=== PATIENT | female | born 1950 | race Caucasian/White ===

== ENCOUNTER → 2016-06-09 | Outpatient (CLI) | payer OTHER ==
[~2016-06-09] MED LIST: ALBU1AER9 INH; ASPI1TAB83 PO; CALC500T83 PO; CETI10TA84 PO; CHOL100010 PO; CICL160A INH; CRD30 PO; CYAN3INJ IM; CYNI1000 INJ; EPP3/2 IM; EZET10TA63 PO; FLUT0.15 NAE; FURO-85 PO; IBUP-1277 PO; MONT1TAB3 PO; PRAV20TA PO; PROAIR INH; QUIN20TA30 PO; TYLOTC500 PO; ZNTT/150 PO
--- NOTE | 2016-06-09 10:13 | DIAGNOSTIC IMAGING REPORT ---
Ultrasound right arm RIGHT EXTREMITY NONVASCULAR LIMITED CLINICAL HISTORY: T14.8 Intramuscular hematomatous wed Sunday at 10 am Right hematoma. TECHNIQUE: Real-time ultrasound COMPARISON STUDY: None FINDINGS: Subtle increase in echogenicity of the subcutaneous tissues at the site of clinically palpable nodularity, discomfort, superficial bruising. This measures prior study at 2 x 1 cm. It may be consistent with a small hematoma. IMPRESSION: The clinically palpable nodularity appears to represent a soft tissue contusion/bruise, or small hematoma. Electronically signed by: Howard Aly M.D. 06/09/2016 10:10 AM Dictated Date/Time: 06/09/2016 10:05 AM
== END | disposition home or self-care (01) ==
LOC: C.ULTRBC 09:20
PROVIDERS: ATTEND Internal Medicine
DX: T14.8 Other injury of unspecified body region (principal); X58.XXXA Exposure to other specified factors, initial encounter

== ENCOUNTER → 2016-06-29 | Outpatient (CLI) | payer OTHER ==
--- NOTE | 2016-07-07 10:42 | CODING QUERY MEDICAL NECESSITY ---
CQSUPPORTING DIAGNOSIS NEEDED A supporting diagnosis is required for the test/procedure performed on this patient in order for us to be reimbursed by the patient's insurance. Please provide a supporting diagnosis for the following test/procedure listed below next to the test name along with your signature. *If there is no additional diagnosis for this patient that would support the following test/procedure please document that below next to the test/procedure. Test(s)/Procedure(s) that require a supporting diagnosis: DOS 06/29/16 VITAMIN B12 Provider Signature: Date: Thank you Mary Null [employer] Once completed, please kindly fax back to [phone] For questions please call [phone]
== END | disposition home or self-care (01) ==
LOC: C.LAB1850 09:23
PROVIDERS: ATTEND Internal Medicine
DX: Z00.00 Encounter for general adult medical examination without abnormal findings (principal); M25.50 Pain in unspecified joint; M81.0 Age-related osteoporosis without current pathological fracture

== ENCOUNTER 2016-09-21 16:58 | Emergency (ER) | payer OTHER ==
[~2016-09-21] VITALS: Ht 160 cm; Wt 69.0 kg
[~2016-09-21 16:58] MED LIST changes: -CRD30 PO; -CYNI1000 INJ; -FURO-85 PO; -PROAIR INH
[2016-09-21 17:03] VITALS: TEMP 36.8; Ht 160 cm; Wt 69.0 kg
[2016-09-21] MEDS ORDERED: FURO-85 PO (17:24)
[2016-09-21] MEDS ORDERED: CYNI1000 INJ (17:24)
[2016-09-21] MEDS ORDERED: CHOL100010 PO (17:24)
[2016-09-21] MEDS ORDERED: CRD30 PO (17:24)
[2016-09-21] MEDS ORDERED: PROAIR INH (17:24)
--- NOTE | 2016-09-21 18:35 | DIAGNOSTIC IMAGING REPORT ---
LEFT KNEE 1 OR 2 VIEWS ROUTINE CLINICAL HISTORY: Left knee pain following fall. COMPARISON: None FINDINGS: Alignment of the left knee is anatomic. No acute fracture or joint effusion is identified. There is mild osteophytosis of the left knee. Joint spaces are preserved. Positioning on the lateral view was difficult. IMPRESSION: No acute fracture or joint effusion of the left knee. Electronically signed by: Cedric Jimenez M.D. 09/21/2016 6:34 PM Dictated Date/Time: 09/21/2016 6:32 PM
--- NOTE | 2016-09-21 18:37 | DIAGNOSTIC IMAGING REPORT ---
RIGHT WRIST W/NAVICULAR MIN 3 VIEWS CLINICAL HISTORY: FALL, EVAL FX Right trauma. Pain. COMPARISON: None. DISCUSSION: Possible artifact versus nondisplaced cortical fracture mid navicular. All remaining osseous structures are negative for acute bony pathology. Alignment is anatomic. There is no evidence for soft tissue swelling. IMPRESSION: Nondisplaced incomplete cortical fracture mid navicular versus overlap artifact. CT of the right wrist is suggested as follow-up. The above report was generated using voice recognition software. It may contain grammatical, syntax or spelling errors. Electronically signed by: Howard Aly M.D. 09/21/2016 6:35 PM Dictated Date/Time: 09/21/2016 6:34 PM
--- NOTE | 2016-09-21 19:11 | EMERGENCY ROOM VISIT NOTE ---
ED Visit Note First contact with patient: 17:13 CHIEF COMPLAINT: Wrist injury HISTORY OF PRESENT ILLNESS: This 66-year-old female patient presents to the emergency department with her complaining of pain in the left knee and right wrist after falling earlier today. Patient states she slipped on some wet floor and fell forward onto both knees and put her hand out to catch herself. The patient is able to move their wrist. She states she is able to walk on the left knee, but has some pain and feels like it is going to "give out on her." The patient states the pain is aching and 3/10. No laceration, no weakness. No numbness or tingling. The patient denies any other injury. The patient is able to move their fingers and elbow without difficulty. Patient has no hip pain or ankle pain. The patient has not had a previous fracture to this wrist or knee. The patient has taken Tylenol for the pain. REVIEW OF SYSTEMS: A 6 system review of systems was performed with positives and pertinent negatives in the HPI. ALLERGIES: See chart MEDICATIONS: See chart PMH: See chart SOCIAL HISTORY: See chart PHYSICAL EXAM: Vital Signs: Reviewed Nurse's notes, vital signs stable. GENERAL : Pleasant and cooperative, in no acute distress, but appears to be in pain, well-developed, well-nourished. NEURO: Alert and oriented to person place and time. Normal sensation to light and sharp touch. MUSCULOSKELETAL: There is no deformity of the right wrist. There is tenderness, ecchymosis, and swelling over the palmar aspect of the base of the right thumb. There is snuff box tenderness. Range of motion is somewhat limited due to pain. There is no tenderness of the elbow, hand or fingers. 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 Radial pulse 2+. SKIN: Normal and intact. The hand is warm and well perfused with capillary refill less than 2 seconds. There is no deformity of the left knee. There is mild tenderness and ecchymosis with swelling over the anterior knee. There is no pain with full range of motion of the knee, no joint laxity, no joint line tenderness, no pain with varus and valgus stress. Distal pulses intact, sensation intact. EMERGENCY DEPARTMENT COURSE: I examined the patient. An X-ray of the left knee and right wrist was reviewed by myself and radiologist and showed no acute abnormality of the left knee, concern for possible navicular fracture of the right wrist. The patient has been ambulating on the left knee without pain or difficulty. Given fairly normal knee exam, will not place the patient into a knee immobilizer due to her history of factor V deficiency and increased risk for blood clots. Patient states she has a cane and crutches at home that she can use as needed. A Ortho-Glass thumb spica splint to the right wrist was placed under my direction and the position was satisfactory. Neurovascular status rechecked and intact. The patient was instructed to follow up with orthopedics, she states she has called Dr. Blanco's office and arranged an appointment for tomorrow. The patient was discharged home in good condition. Medication Reconciliation: I attest that I have personally reviewed the patient' s current medication list. Blood pressure screening: The patient was found to have an elevated blood pressure and was referred to their primary doctor for recheck and further treatment. Patient was discussed with Dr. Shi, who also evaluated the patient and agrees with my assessment and disposition. Problem List Medical Problems: (1) Asthma Status: Chronic (2) Factor V Leiden, prothrombin gene mutation Status: Chronic (3) Heterozygous factor V Leiden mutation Status: Chronic (4) HTN (hypertension) Status: Chronic (5) Kidney stone Status: Resolved (6) Medullary sponge kidney Status: Chronic Current/Historical Medications Scheduled Aspirin (Aspirin), 81 MG PO QPM Calcium (Calcium), 500 MG PO DAILY Cetirizine (Zyrtec), 10 MG PO QAM Cholecalciferol (Vitamin D), 1,000 UNITS PO DAILY Ciclesonide (Alvesco), 1 PUFF INH QAM Cyanocobalamin (Cyanocobalamin), 1,000 MCG INJ UD Epinephrine (Epipen), 0.3 MG IM UD Ezetimibe (Zetia), 10 MG PO HS Fluticasone Propionate (Nasal) (Flonase Allergy Relief), 2 SPRAYS SHILPA QAM Furosemide (Lasix), 20 MG PO UD Montelukast Sodium (Singulair), 10 MG PO HS Pravastatin (Pravachol ), 10 MG PO HS Quinapril Hcl (Quinapril Hcl), 1 TAB PO BID Ranitidine (Zantac), 150 MG PO BID Scheduled PRN Acetaminophen (Tylenol), 1,000 MG PO Q6 PRN for Pain Diltiazem HCl (Diltiazem HCl), 30 MG PO DAILY PRN for [Proair Hfa 180], 2 PUFFS INH Q4 PRN for Shortness of Breath Allergies Coded Allergies: Ferric Oxide (Verified Allergy, Severe, ANAPHYLAXIS, 10/14/15) burning in feet, faint, rapid heart rate, decreased blood pressure Insect Extract (Verified Allergy, Severe, ANAPHYLAXIS, 10/14/15) Peanut (Verified Allergy, Severe, ANAPHYLAXIS, 10/14/15) Shellfish (Verified Allergy, Severe, ANAPHYLAXIS, 10/14/15) Iron Sucrose (Unverified Allergy, Unknown, IV IRON SUCROSE-WEAKNESS,LT HEADED,CHEST HEAVINESS, HOT SENS, 10/14/15) Sulfa Antibiotics (Verified Allergy, Unknown, TACHYCARDIA,? DRUG INTERACTION, 10/14/15) Vital Signs Date Time Temp Pulse Resp B/P (MAP) Pulse Ox O2 Delivery O2 Flow Rate FiO2 09/21/16 20:37 88 18 144/78 97 09/21/16 17:03 36.8 87 18 191/90 95 Departure Information Impression Primary Impression: Scaphoid fracture of wrist Additional Impression: Left knee sprain Dispostion Home / Self-Care Condition GOOD Referrals Pro,Josh Draper M.D. (PCP) Patient Instructions ED Fx Wrist Navicular Poss, ED Sprain Knee, [facility] Additional Instructions Wear the wrist splint until you have follow-up. Stay off of the left knee as much as possible. You may use the crutch for additional stability. Ice and keep the wrist and knee elevated for 24-48 hrs. Ibuprofen 600mg and Tylenol 1000 mg every 6-8 hours if needed for the pain. Follow up with orthopedic surgeon within the next week. Problem Qualifiers Primary Impression: Scaphoid fracture of wrist Encounter type: initial encounter Scaphoid bone location: unspecified portion of scaphoid Fracture type: closed Fracture alignment: nondisplaced Laterality: right Qualified Codes: S62.001A - Unspecified fracture of navicular [scaphoid] bone of right wrist, initial encounter for closed fracture Additional Impression: Left knee sprain Encounter type: initial encounter Involved ligament of knee: unspecified ligament Qualified Codes: S83.92XA - Sprain of unspecified site of left knee, initial encounter
--- NOTE | 2016-09-21 20:29 | EMERGENCY ROOM VISIT NOTE ---
ED Visit Note First contact with patient: 20:28 This Patient was discussed with the nurse practitioner, Trisha Rojas NP. The pertinent historical and physical exam findings were confirmed. I agree with the studies ordered and with the interpretations of these studies. I agree with the disposition and care plan.
[2016-09-21 20:37] VITALS: BP 144/78; PULSE 88; O2SAT 97
== END 2016-09-21 20:38 | disposition home or self-care (01) ==
LOC: C.EDB 16:59 → C.EDD 20:38
DX: S62.001A Unspecified fracture of navicular [scaphoid] bone of right wrist, initial encounter for closed fracture (principal); S83.92XA Sprain of unspecified site of left knee, initial encounter; W01.198A Fall on same level from slipping, tripping and stumbling with subsequent striking against other object, initial encounter; D68.2 Hereditary deficiency of other clotting factors; J45.909 Unspecified asthma, uncomplicated; I10 Essential (primary) hypertension; D68.51 Activated protein C resistance; Z87.442 Personal history of urinary calculi; Z79.82 Long term (current) use of aspirin

== ENCOUNTER → 2017-01-30 | Outpatient (CLI) | payer OTHER ==
[~2017-01-30] MED LIST changes: -ALBU1AER9 INH; +CRD30 PO; -CYAN3INJ IM; +CYNI1000 INJ; +FURO-85 PO; -IBUP-1277 PO; +PROAIR INH
--- NOTE | 2017-01-31 13:45 | MAMMOGRAPHY REPORT ---
BILATERAL DIGITAL SCREENING MAMMOGRAM TOMOSYNTHESIS WITH CAD: 01/30/2017 CLINICAL HISTORY: Routine screening. Patient has no complaints. TECHNIQUE: Breast tomosynthesis in addition to standard 2D mammography was performed. Current study was also evaluated with a Computer Aided Detection (CAD) system. COMPARISON: Comparison is made to exams dated: 01/24/2016 mammogram, 01/20/2015 mammogram, 4 mammogram, 01/10/2013 mammogram, 01/09/2012 mammogram, and 01/03/2011 mammogram - [facility]. BREAST COMPOSITION: There are scattered areas of fibroglandular density in both breasts. FINDINGS: There is stable asymmetry in the superior left breast. No new suspicious mass, architectu ral distortion or cluster of microcalcifications is seen. IMPRESSION: ACR BI-RADS CATEGORY 1: NEGATIVE There is no mammographic evidence of malignancy. A 1 year screening mammogram is recommended. The pa tient will receive written notification of the results. Approximately 10% of breast cancers are not detected with mammography. A negative mammographic report should not delay biopsy if a clinically suggestive mass is present. Zeina Sánchez M.D. ay/:01/30/2017 17:51:03 Social Security Assessor: Shelly RON(Renato)(Angeline)([place]), [facility] letter sent: Normal 1/2 BI-RADS Code: ACR BI-RADS Category 1: Negative
== END | disposition home or self-care (01) ==
LOC: C.MAMM 08:43
PROVIDERS: ATTEND Obstetrics & Gynecology
DX: Z12.31 Encounter for screening mammogram for malignant neoplasm of breast (principal)

== ENCOUNTER → 2017-05-18 | Day surgery (SDC) | payer OTHER ==
[2017-05-01 09:00] VITALS: Ht 158.8 cm; Wt 70.5 kg
[~2017-05-18] VITALS: Ht 158.8 cm; Wt 70.5 kg
[~2017-05-18] MED LIST changes: +LIDOCAINE HCL 2% 2 ML VIAL (20MG/ML) ONE; -MONT1TAB3 PO; -PRAV20TA PO; +PROPOFOL IV EMULSION 10 MG/ML 20 ML VIAL IV ONE; +RANI150T85 PO; -ZNTT/150 PO
[2017-05-18 11:05] VITALS: TEMP 36.2
--- NOTE | 2017-05-18 11:56 | Endo History and Physical ---
History & Physical Date of Service: May 18, 2017. Chief Complaint: INTESTIONAL METAPLASIA MUCOSA Referring Physician: DR HENSLEY History of Present Illness 66 yo CF who presents for EGD secondary to intestinal metaplasia in stomach. Past Medical History Osteoporosis, Asthma, Gastrointestinal Disorder, Reflux, Blood Dyscrasias, High Cholesterol, Hypertension, Other Past Surgical History Hx Cardiac Surgery: No Hx Internal Defibrillator: No Hx Pacemaker: No Hx Abdominal Surgery: Yes (HERNIA REPAIR) Hx of Implantable Prosthesis: No Hx Post-Op Nausea and Vomiting: No Hx Cancer Surgery: No Hx Thoracic Surgery: No Hx Orthopedic: No Hx Urinary Tract Surgery: Yes (LITHOTRIPSY) Family History Colon CA, Polyp, IBD Social History Smoking Status: Former Smoker Hx Substance Use: No Hx Alcohol Use: No Allergies Coded Allergies: Ferric Oxide (Verified Allergy, Severe, ANAPHYLAXIS, 05/01/17) burning in feet, faint, rapid heart rate, decreased blood pressure Insect Extract (Verified Allergy, Severe, ANAPHYLAXIS, 05/01/17) Peanut (Verified Allergy, Severe, ANAPHYLAXIS, 05/01/17) Shellfish (Verified Allergy, Severe, ANAPHYLAXIS, 05/01/17) Iron Sucrose (Verified Allergy, Unknown, IV IRON SUCROSE-WEAKNESS,LT HEADED,CHEST HEAVINESS, HOT SENS, 05/18/17) Sulfa Antibiotics (Verified Allergy, Unknown, TACHYCARDIA,? DRUG INTERACTION, 05/01/17) Uncoded Allergies: APPLES (Allergy, Unknown, MOUTH AND LIPS TINGLE, 05/18/17) Current Medications Reported Home Medications Medications Dose Route/Sig Max Daily Dose Days Date Category Dose Instructions Diltiazem HCl 30 Mg Tab 30 Mg PO DAILY PRN 09/21/16 Reported Lasix (Furosemide) 20 Mg Tab 20 Mg PO UD 09/21/16 Reported TAKE 1 TAB BEFORE AND AFTER EACH LEG OF THE FLIGHT. Vitamin D (Cholecalciferol) 1,000 Unit Tab 1,000 Units PO DAILY 09/21/16 Reported [Proair Hfa 180] 2 Puffs INH Q4 PRN 09/21/16 Reported Cyanocobalamin 1,000 Mcg/Ml Inj 1,000 Mcg INJ MONTHLY 09/21/16 Reported Quinapril Hcl 20 Mg Tab 1 Tab PO BID 10/14/15 Reported Flonase Allergy Relief (Fluticasone Propionate (Nasal)) 50 Mcg/Act Spr 2 Sprays SHILPA QAM 3/4/16 Reported Tylenol (Acetaminophen) 500 Mg Tab 1,000 Mg PO Q6 PRN 10/03/14 Reported Zyrtec (Cetirizine HCl) 10 Mg Tab 10 Mg PO QAM 10/03/14 Reported Epipen (Epinephrine) 0.3 Mg/0.3 Ml Inj 0.3 Mg IM UD 09/11/12 Reported ONE INJECTION IM PRN SEVERE ALLERGIC REACTION. REPEAT IN 20 MINUTES PRN CONTINUED REACTION. Calcium 500 Mg Tab 500 Mg PO DAILY 09/11/12 Reported Aspirin 81 Mg Tab 81 Mg PO QPM 09/11/12 Reported Alvesco (Ciclesonide) 160 Mcg/Act Aer 1 Puff INH QAM 09/11/12 Reported MAY INCREASE TO 1 PUFF BID NEEDED FOR EXACERBATION Zantac (Ranitidine HCl) 150 Mg Tab 150 Mg PO BID 04/23/10 Reported Zetia (Ezetimibe) 10 Mg Tab 10 Mg PO HS 04/23/10 Reported Vital Signs Weight (Kilograms): 70.45 Height (Feet): 5 Height (Inches): 2.5 Date Time Temp Pulse Resp B/P (MAP) Pulse Ox O2 Delivery O2 Flow Rate FiO2 05/18/17 11:05 36.2 85 20 160/92 (114) 98 Room Air Physical Exam General Appearance: WD/WN, no apparent distress Respiratory/Chest: Auscultation: breath sounds normal Cardiovascular: Heart Auscultation: RRR Abdomen: Bowel Sounds: normal Inspection & Palpation: soft, non-distended, no tenderness, guarding & rebound Assessment and Plan Assessment: 66 yo CF who presents for EGD secondary to intestinal metaplasia in stomach. Plan: Proceed with EGD.
--- NOTE | 2017-05-18 12:14 | GI REPORT ---
Procedure Date: 05/18/2017 11:26 AM Procedure: Upper GI endoscopy Indications: Surveillance procedure Medicines: Monitored Anesthesia Care Complications: No immediate complications. Estimated Blood Loss: Estimated blood loss: none. Procedure: Pre-Anesthesia Assessment: - Prior to the procedure, a History and Physical was performed, and patient medications and allergies were reviewed. The patient's tolerance of previous anesthesia was also reviewed. The risks and benefits of the procedure and the sedation options and risks were discussed with the patient. All questions were answered, and informed consent was obtained. Prior Anticoagulants: The patient has taken aspirin, last dose was 1 day prior to procedure. ASA Grade Assessment: II - A patient with mild systemic disease. After reviewing the risks and benefits, the patient was deemed in satisfactory condition to undergo the procedure. After obtaining informed consent, the endoscope was passed under direct vision. Throughout the procedure, the patient's blood pressure, pulse, and oxygen saturations were monitored continuously. The scope was introduced through the mouth, and advanced to the second part of duodenum. The upper GI endoscopy was accomplished without difficulty. The patient tolerated the procedure well. Findings: The esophagus was normal. A medium-sized hiatal hernia was present. Biopsies were taken with a cold forceps in the gastric antrum for histology. The examined duodenum was normal. Impression: - Normal esophagus. - Medium-sized hiatal hernia. - Normal examined duodenum. - Biopsies were taken with a cold forceps for histology in the gastric antrum. Recommendation: - Resume previous diet. - Continue present medications. - Await pathology results. - Return to primary care physician as previously scheduled. Jesus Alston DO 05/18/2017 12:13:43 PM This report has been signed electronically. Note Initiated On: 05/18/2017 11:26 AM I attest to the content of the Intraoperative Record and orders documented therein, exceptions below
[2017-05-18 12:43] VITALS: BP 118/75; PULSE 64; O2SAT 98
--- NOTE | 2017-05-18 12:47 | Discharge Instructions ---
Endoscopy Patient Instructions Date / Procedure(s) Performed May 18, 2017. Colonoscopy Allergy Information Coded Allergies: Ferric Oxide (Verified Allergy, Severe, ANAPHYLAXIS, 05/01/17) burning in feet, faint, rapid heart rate, decreased blood pressure Insect Extract (Verified Allergy, Severe, ANAPHYLAXIS, 05/01/17) Peanut (Verified Allergy, Severe, ANAPHYLAXIS, 05/01/17) Shellfish (Verified Allergy, Severe, ANAPHYLAXIS, 05/01/17) Iron Sucrose (Verified Allergy, Unknown, IV IRON SUCROSE-WEAKNESS,LT HEADED,CHEST HEAVINESS, HOT SENS, 05/18/17) Sulfa Antibiotics (Verified Allergy, Unknown, TACHYCARDIA,? DRUG INTERACTION, 05/01/17) Uncoded Allergies: APPLES (Allergy, Unknown, MOUTH AND LIPS TINGLE, 05/18/17) Discharge Date / Findings May 18, 2017. Gastric antrum biopsies Hiatal hernia Medication Instructions Stopped Medication(s): ASPIRIN LAST DOSE 05/17/17 OK to resume all medications today as prescribed Reported Home Medications Medications Dose Route/Sig Max Daily Dose Days Date Category Dose Instructions Diltiazem HCl 30 Mg Tab 30 Mg PO DAILY PRN 09/21/16 Reported Lasix (Furosemide) 20 Mg Tab 20 Mg PO UD 09/21/16 Reported TAKE 1 TAB BEFORE AND AFTER EACH LEG OF THE FLIGHT. Vitamin D (Cholecalciferol) 1,000 Unit Tab 1,000 Units PO DAILY 09/21/16 Reported [Proair Hfa 180] 2 Puffs INH Q4 PRN 09/21/16 Reported Cyanocobalamin 1,000 Mcg/Ml Inj 1,000 Mcg INJ MONTHLY 09/21/16 Reported Quinapril Hcl 20 Mg Tab 1 Tab PO BID 10/14/15 Reported Flonase Allergy Relief (Fluticasone Propionate (Nasal)) 50 Mcg/Act Spr 2 Sprays SHILPA QAM 05/07/15 Reported Tylenol (Acetaminophen) 500 Mg Tab 1,000 Mg PO Q6 PRN 10/03/14 Reported Zyrtec (Cetirizine HCl) 10 Mg Tab 10 Mg PO QAM 10/03/14 Reported Epipen (Epinephrine) 0.3 Mg/0.3 Ml Inj 0.3 Mg IM UD 09/11/12 Reported ONE INJECTION IM PRN SEVERE ALLERGIC REACTION. REPEAT IN 20 MINUTES PRN CONTINUED REACTION. Calcium 500 Mg Tab 500 Mg PO DAILY 09/11/12 Reported Aspirin 81 Mg Tab 81 Mg PO QPM 09/11/12 Reported Alvesco (Ciclesonide) 160 Mcg/Act Aer 1 Puff INH QAM 09/11/12 Reported MAY INCREASE TO 1 PUFF BID NEEDED FOR EXACERBATION Zantac (Ranitidine HCl) 150 Mg Tab 150 Mg PO BID 04/23/10 Reported Zetia (Ezetimibe) 10 Mg Tab 10 Mg PO HS 04/23/10 Reported Provider Instructions Activity Restrictions - No exercising or heavy lifting for 24 hours. - Do not drink alcohol the day of the procedure. - Do not drive a car or operate machinery until the day after the procedure. - Do not make any important decisions or sign important papers in 24 hours after the procedure. Following Day: - Return to full activity which may include returning to work/school. Diet Start your diet with liquids and light foods (jello, soup, juice, toast). Then eat your usual diet if not nauseated. Treatment For Common After Affects For mild abdominal pain, bloating, or excessive gas: - Rest - Eat lightly - Lie on right side Follow-Up Information Follow-up with DR HENSLEY as scheduled Anesthesia Information What You Should Know You have had a procedure that required some medicine to reduce anxiety and discomfort. This treatment is called moderate sedation. After receiving the treatment, you may be sleepy, but you will be able to breathe on your own. The effects of the treatment may last for several hours. Follow these instructions along with Activity/Diet recommendations noted above: * Do NOT do anything where dizziness or clumsiness would be dangerous. * Rest quietly at home today, then you can be up and about tomorrow. * Have a responsible person stay with you the rest of today. * You may have had an I.V. today. If so, you may take the dressing off later today. Recommendations Call your doctor if: * Trouble breathing * Continuous vomiting for more than 24 hours * Temperature above 101 degrees * Severe abdominal pain or bloating * Pain not relieved by pain medicine ordered * There is increased drainage or redness from any incision * A large amount of rectal bleeding greater than 2-3 tablespoons. (If you had a polyp/s removed or have hemorrhoids, a small amount of blood - from the rectum is to be expected.) * You have any unanswered questions or concerns. IN THE EVENT OF A SERIOUS EMERGENCY, GO TO THE NEAREST EMERGENCY ROOM Your discharge instructions were prepared by provider Jesus Alston. Patient Instructions Signature Page Raquel Devine Patient (or Guardian) Signature/Date: I have read and understand the instructions given to me by my caregivers. Caregiver/RN/Doctor Signature/Date: The above-named patient and/or guardian has received patient instructions on this date. + Original Patient Signature Page (only) stays with chart. Please make copy for patient.
--- NOTE | 2017-05-18 13:16 | Anesthesiology Progress Note ---
Anesthesia Post Op Note Date & Time May 18, 2017 at 13:16 Vital Signs Pain Intensity: 0 Vital Signs Past 12 Hours Date Time Temp Pulse Resp B/P (MAP) Pulse Ox O2 Delivery O2 Flow Rate FiO2 05/18/17 12:43 64 18 118/75 (89) 98 Room Air 05/18/17 12:29 75 18 128/81 (97) 98 Room Air 05/18/17 12:13 80 16 98/63 (75) 98 Room Air 05/18/17 11:05 36.2 85 20 160/92 (114) 98 Room Air Notes Mental Status: alert / awake / arousable, participated in evaluation Pt Amnestic to Procedure: Yes Nausea / Vomiting: adequately controlled Pain: adequately controlled Airway Patency, RR, SpO2: stable & adequate BP & HR: stable & adequate Hydration State: stable & adequate Anesthetic Complications: no major complications apparent
== END | disposition home or self-care (01) ==
LOC: C.GI 10:39
PROVIDERS: ATTEND Internal Medicine
DX: K63.89 Other specified diseases of intestine (principal); K29.50 Unspecified chronic gastritis without bleeding; K44.9 Diaphragmatic hernia without obstruction or gangrene; N18.9 Chronic kidney disease, unspecified; I12.9 Hypertensive chronic kidney disease with stage 1 through stage 4 chronic kidney disease, or unspecified chronic kidney disease; E78.5 Hyperlipidemia, unspecified; D68.51 Activated protein C resistance; J45.909 Unspecified asthma, uncomplicated; K21.9 Gastro-esophageal reflux disease without esophagitis; E78.00 Pure hypercholesterolemia, unspecified; M81.0 Age-related osteoporosis without current pathological fracture; Z88.2 Allergy status to sulfonamides; Z91.013 Allergy to seafood; Z91.010 Allergy to peanuts; Z88.8 Allergy status to other drugs, medicaments and biological substances; Z79.82 Long term (current) use of aspirin; Z87.891 Personal history of nicotine dependence; Z80.0 Family history of malignant neoplasm of digestive organs

== ENCOUNTER → 2017-06-28 | Outpatient (CLI) | payer OTHER ==
[~2017-06-28] MED LIST changes: -LIDOCAINE HCL 2% 2 ML VIAL (20MG/ML) ONE; -PROPOFOL IV EMULSION 10 MG/ML 20 ML VIAL IV ONE
--- NOTE | 2017-06-28 09:04 | DIAGNOSTIC IMAGING REPORT ---
R RIBS UNILATERAL WITH PA CHEST CLINICAL HISTORY: R07.81 right rib pain COMPARISON STUDY: No previous studies for comparison. FINDINGS: The erect chest reveals no pneumothorax. There is no focal pulmonary consolidation. No right-sided rib fractures are visualized. No destructive lesions are visualized on conventional radiographic imaging. IMPRESSION: No evidence of pneumothorax. No right-sided rib abnormalities identified Electronically signed by: Roman Owens M.D. 06/28/2017 9:03 AM Dictated Date/Time: 06/28/2017 9:02 AM
== END | disposition home or self-care (01) ==
LOC: C.RAD1850 08:46
PROVIDERS: ATTEND Internal Medicine
DX: R07.81 Pleurodynia (principal)

== ENCOUNTER 2019-03-01 12:47 | Inpatient (IN) ==
[2019-03-01] MEDS ORDERED: ONDANSETRON INJ 2 MG/ML 2 ML VIAL IV STA (13:18)
[2019-03-01 13:28] LABS: Hematocrit (blood only) 42.5 % (37-47); Hemoglobin 14.3 g/dL (12.0-16.0); Mean Corpuscular Hemoglobin 32.6 pg (25-34); Mean Corpuscular Hgb Conc 33.6 g/dL (32-36); Mean Corpuscular Volume 96.8 fL (80-100); Mean Platelet Volume 10.6 fL (7.4-10.4); Platelet Count 262 K/uL (130-400); RDW Coefficient of Variation 13.5 % (11.5-14.5); RDW Standard Deviation 48.1 fL (36.4-46.3); Red Blood Count 4.39 M/uL (4.2-5.4); White Blood Count 8.76 K/uL (4.8-10.8)
[2019-03-01] MEDS: MoRPHine SULFATE 4 MG/ML 1 ML CARP\\VIAL IV PRN ×3 (13:29→18:28)
[2019-03-01] MEDS ORDERED: SODIUM CHLORIDE 0.9% 1000ML 1,000 ML IV SCH (13:30)
[2019-03-01 13:36] LABS: Albumin Level 4.3 gm/dl (3.4-5.0); BUN Creatinine Ratio 19.6 (10-20); Calcium 10.1 mg/dl (8.5-10.1); Creatinine Clr Calc Pharmacy 61.7 ml/min; Est GFR (African American) 83.4; Est GFR (Non-African American) 71.9; Potassium 3.8 mmol/L (3.5-5.1)
[2019-03-01 13:42] LABS: Bilirubin,Total 0.4 mg/dl (0.2-1); Globulin 4.4 gm/dl (2.5-4.0); Total Protein 8.7 gm/dl (6.4-8.2)
[2019-03-01] MEDS ORDERED: IOVERSOL 100ml IV PRN (13:49)
--- NOTE | 2019-03-01 13:55 | Emergency Department Note ---
Entered by Reno Gant acting as a scribe for History of Present Illness General Chief complaint: Abdominal Pain Time Seen by Provider: 03/01/19 13:11 Source: patient History of Present Illness Provider complaint: Abdominal pain Onset (ago): hour(s) 2 Location: abdomen Severity: similar to prior episodes Pain Consistency: + colicky Relieved By: + none Associated symptoms: + nausea/vomiting and + other (Lightheaded); no fever/chills The patient is a 68 year old female who presents to the Emergency Room with complaints of colicky abdominal pain that started suddenly about 2 hours ago. The patient reports that she had no pain yesterday or this morning. She states that with the pain she has some nausea and has vomited. The patient notes that she initially thought she just had to move her bowels but while she was sitting on the toilet she became near syncopal and vomited. The patient denies any complete LOC or head trauma. The patient has a history of diverticulitis and notes this feels somewhat similar. The patient also mentioned that she was around her grand kids who have been coughing but no one has had GI symptoms. The patient still has her appendix and gallbladder. She denies any fevers. Home Medications Home Medications Medication Instructions Recorded Confirmed Type albuterol sulfate 90 mcg/actuation 1 puffs INH Q6H PRN #8.5 gm 08/19/18 03/01/19 Rx aerosol inhaler calcium carbonate 200 mg calcium 200 mg PO BID #60 tab 08/19/18 03/01/19 Rx (500 mg) chewable tablet cholecalciferol (vitamin D3) 25 1,000 units PO DAILY #30 cap 08/19/18 03/01/19 Rx mcg (1,000 unit) capsule diltiazem HCl 30 mg tablet 30 mg PO DAILY PRN #90 tab 08/19/18 03/01/19 Rx ezetimibe 10 mg tablet 10 mg PO HS #90 tab 08/19/18 03/01/19 Rx cyanocobalamin (vitamin B-12) 1,000 mcg IM MONTHLY ml 08/20/18 03/01/19 History 1,000 mcg/mL injection solution epinephrine 0.3 mg/0.3 mL 0.3 mg IM Q20M PRN #2 ea 11/29/18 03/01/19 Rx injection, auto-injector famotidine 20 mg tablet 20 mg PO BID 90 Days #180 tab 12/18/18 03/01/19 Rx ciclesonide 160 mcg/actuation 1 puffs INH BID gm 01/23/19 03/01/19 History aerosol inhaler aspirin [Adult Aspirin Regimen] 81 mg PO HS 02/28/19 03/01/19 History cetirizine [All Day Allergy 10 mg PO HS 02/28/19 03/01/19 History (cetirizine)] fluticasone propionate [Allergy 1 sprays INTNAS QAM 02/28/19 03/01/19 History Relief (fluticasone)] furosemide 20 mg PO DAILY PRN 02/28/19 03/01/19 History quinapril 10 mg PO QAM 02/28/19 03/01/19 History quinapril 20 mg PO QPM 02/28/19 03/01/19 History Allergies Allergy/AdvReac Type Severity Reaction Status Date / Time apple Allergy Severe mouth/lips Verified 03/01/19 14:00 tingling iron Allergy Severe IV IRON Verified 03/01/19 14:00 SUCROSE-WEAKNESS,LT HEADED,CHEST HEAVINESS, HOT SENS orange Allergy Severe mouth and Verified 03/01/19 14:00 lips tingle/itching peanut Allergy Severe ANAPHYLAXIS Verified 03/01/19 14:00 pistachio nut Allergy Severe "start of Verified 03/01/19 14:00 anaphylaxis" shellfish derived Allergy Severe ANAPHYLAXIS Verified 03/01/19 14:00 Sulfa (Sulfonamide Allergy Severe TACHYCARDIA,? Verified 03/01/19 14:00 Antibiotics) DRUG INTERACTION Venofer Allergy Unknown IV IRON Verified 05/18/17 10:55 SUCROSE-WEAKNESS,LT HEADED,CHEST HEAVINESS, HOT SENS Insect Extract Allergy Severe ANAPHYLAXIS Uncoded 03/01/19 14:00 Past Med/Surg History Medical History Asthma inhaler daily/prn Cardiac murmur Diverticular disease Factor 5 Leiden mutation, heterozygous prothrombin gene mutation Gout Hiatal hernia History of kidney stones Hyperlipidemia Hypertension IBS (irritable bowel syndrome) Medullary sponge kidney (Acute) Nausea and vomiting after administration of anesthetic agent Osteoarthritis Osteoporosis Paroxysmal atrial tachycardia follows with Dr. Chatman Pernicious anemia Surgical History History of colonoscopy with polypectomy History of lithotripsy History of right inguinal hernia repair History of wisdom tooth extraction Family History Father Dementia Hypertension Mother Hyperlipidemia Leukemia Stroke Asthma Grandmother (Maternal) Stroke Grandfather (Maternal) Family hx of colon cancer Other No family history of adverse response to anesthesia Social History Preferred Language: Samoan Communication Ability: Effective [employer] Yacht Required: No Beliefs That Will Affect Care: None marital status: Current Living Situation: Spouse Feels Safe at Home: Yes Smoking Status: Current every day smoker Second Hand Exposure: Yes (parents smoked) ; Hx Alcohol Use: No Hx Substance Use: No Seatbelt Use: always Review of Systems See HPI for pertinent positives & negatives. and A total of 10 systems reviewed and were otherwise negative Physical Exam Vital Signs Vital Signs - 24 hr 03/01/19 12:53 03/01/19 13:03 03/01/19 13:20 Temperature 36.2 C L Temperature Source Oral Pulse Rate 71 77 71 Pulse Rhythm Regular Pulse Strength Normal Respiratory Rate 17 14 20 Respiratory Effort / Characteristics Non-Labored Spontaneous Respiratory Depth Normal Respiratory Pattern Regular Blood Pressure 179/87 H 179/87 H Blood Pressure Mean 113 117 Blood Pressure Position Lying Pulse Oximetry 97 Oxygen Delivery Method Room Air Sepsis Recent Fever Within 48 Hours No Sepsis Action Taken by Nursing No Action Required 03/01/19 13:30 03/01/19 14:10 03/01/19 14:30 Temperature Temperature Source Pulse Rate 67 77 75 Pulse Rhythm Pulse Strength Respiratory Rate 23 25 H 12 Respiratory Effort / Characteristics Respiratory Depth Respiratory Pattern Blood Pressure Blood Pressure Mean Blood Pressure Position Pulse Oximetry Oxygen Delivery Method Sepsis Recent Fever Within 48 Hours Sepsis Action Taken by Nursing 03/01/19 14:46 Temperature Temperature Source Pulse Rate 88 Pulse Rhythm Pulse Strength Respiratory Rate 17 Respiratory Effort / Characteristics Respiratory Depth Respiratory Pattern Blood Pressure 147/83 H Blood Pressure Mean 104 Blood Pressure Position Pulse Oximetry Oxygen Delivery Method Sepsis Recent Fever Within 48 Hours Sepsis Action Taken by Nursing GENERAL: Patient is awake and alert. She is somewhat anxious appearing and appears to be uncomfortable. EYES: The conjunctivae are clear. The pupils are round and reactive. EARS, NOSE, MOUTH AND THROAT: The nose is without any evidence of any deformity. Mucous membranes are moist. Tongue is midline. NECK: The neck is nontender and supple. RESPIRATORY: Normal respiratory effort is noted there is no evidence of wheezing rhonchi or rales CARDIOVASCULAR: Regular rate and rhythm noted there no murmurs rubs or gallops normal S1 normal S2. GASTROINTESTINAL: Abdomen is soft and mildly distended. There is diffuse tenderness to palpation but no guarding or rigidity. BACK: No midline tenderness or or step-off noted range of motion in flexion extension as well as rotation no signs of muscle spasm noted MUSCULOSKELETAL/EXTREMITIES: There is no evidence of gross deformity full range of motion is noted in the hips and shoulders. SKIN: There is no obvious evidence of any rash. There are no petechiae, pallor or cyanosis noted. NEUROLOGIC: Patient is awake alert and oriented x3 strength is symmetric patellar reflexes are 2+ bilaterally Course Course 1313: Past medical records reviewed. The patient was evaluated in room B08, and a complete history and physical examination were performed. 1550: I reevaluated the patient and she reports that her condition has not improved. We discussed the treatment plan and she is agreeable. 1615: I spoke to Dr. Freya Patterson [facility] Hospitalist about the patient's case and he agreed to accept her for further evaluation. Consultations Consultation #1: I spoke to Dr. Freya Patterson [facility] Hospitalist about the patient's case and he agreed to accept her for further evaluation. Time: 16:15 Administered Medications Ioversol (Optiray 320 100ml) 94 ml IV ONCE PRN PRN Reason: Interaction Checking Stop: 03/05/19 13:48 Last Admin: 03/01/19 13:49 Dose: 94 ml Documented by: [id number] Morphine Sulfate (Morphine Sulfate) 4 mg IV Q15M PRN PRN Reason: Pain Stop: 03/15/19 13:17 Last Admin: 03/01/19 16:15 Dose: 4 mg Documented by: [id number] Admin: 03/01/19 13:29 Dose: 4 mg Documented by: [id number] Discontinued Medications Sodium Chloride (Nss 1000ml) 1,000 mls @ 999 mls/hr IV .Q1H1M [place] Stop: 03/01/19 14:30 Last Infusion: 03/01/19 14:51 Dose: 0 mls/hr Documented by: [id number] Admin: 03/01/19 13:29 Dose: 999 mls/hr Documented by: [id number] Ondansetron HCl (Zofran) 4 mg IV NOW STA Stop: 03/01/19 13:19 Last Admin: 03/01/19 13:28 Dose: 4 mg Documented by: [id number] Medical Decision Making Differential Diagnosis Differential diagnoses includes but is not limited to gastritis, peptic ulcer disease, GERD, gallbladder disease, pancreatitis, small bowel obstruction, acute coronary syndrome, pericarditis, ischemic bowel, irritable bowel disease, irritable bowel syndrome, appendicitis, diverticulitis, malignancy, hernia, urinary tract infection, torsion, perforation, trauma, infectious. Medical Records Attestation: I reviewed the patient's medical records. Home Medications Current Medication List: was personally reviewed by me Laboratory Data Attestation: I reviewed the patient's lab results. Result diagrams: 03/01/19 12:40 03/01/19 12:40 Lab Results 03/01/19 03/01/19 03/01/19 Range/Units 12:40 12:40 14:47 WBC 8.76 (4.8-10.8) K/uL RBC 4.39 (4.2-5.4) M/uL Hgb 14.3 (12.0-16.0) g/dL Hct 42.5 (37-47) % MCV 96.8 (80-100) fL MCH 32.6 (25-34) pg MCHC 33.6 (32-36) g/dL RDW Std Deviation 48.1 H (36.4-46.3) fL RDW Coeff of James 13.5 (11.5-14.5) % Plt Count 262 (130-400) K/uL MPV 10.6 H (7.4-10.4) fL Neutrophils % (Manual) 28.1 % Lymphocytes % (Manual) 28.1 % Monocytes % (Manual) 7.0 % Eosinophils % (Manual) 1.8 % Neutrophils # (Manual) 2.46 (1.4-6.5) K/uL Total Absolute Neuts 2.46 (1.4-6.5) K/uL Lymphocytes # (Manual) 2.46 (1.2-3.4) K/uL Total Abs Lymphocytes 5.53 H (1.2-3.4) K/uL Monocytes # (Manual) 0.61 H (0.11-0.59) K/uL Eosinophils # (Manual) 0.16 (0-0.5) K/uL Large Granular Lymphs 35.0 % # Lrg Granular Lymphs 3.07 K/uL RBC Morphology Unremarkable Sodium 137 (136-145) mmol/L Potassium 3.8 (3.5-5.1) mmol/L Chloride 105 (98-107) mmol/L Carbon Dioxide 26 (21-32) mmol/L Anion Gap 6.0 (3-11) BUN 16 (7-18) mg/dl Creatinine 0.83 (0.6-1.2) mg/dl Est Cr Clr Drug Dosing 61.7 ml/min Est GFR ( Amer) 83.4 Est GFR (Non-Af Amer) 71.9 BUN/Creatinine Ratio 19.6 (10-20) Glucose 109 H (70-99) mg/dl Calcium 10.1 (8.5-10.1) mg/dl Total Bilirubin 0.4 (0.2-1) mg/dl AST 17 (15-37) U/L ALT 21 (12-78) U/L Alkaline Phosphatase 79 (45-117) U/L Total Protein 8.7 H (6.4-8.2) gm/dl Albumin 4.3 (3.4-5.0) gm/dl Globulin 4.4 H (2.5-4.0) gm/dl Albumin/Globulin Ratio 1.0 (0.9-2) Lipase 297 (73-393) U/L Urine Color Yellow Urine Appearance Clear (Clear) Urine pH 5.0 (4.5-7.5) Ur Specific [place] 1.036 H (1.000-1.030) Urine Protein Negative (Negative) Urine Glucose (UA) Negative (Negative) Urine Ketones Negative (Negative) Urine Blood Trace H (Negative) Urine Nitrite Negative (Negative) Urine Bilirubin Negative (Negative) Urine Urobilinogen Negative (Negative) Ur Leukocyte Esterase Negative (Negative) Urine WBC (Auto) 1-5 (0-5) /hpf Urine RBC (Auto) 0-4 (0-4) /hpf U Hyaline Cast (Auto) 1-5 (0-5) /lpf U Epithel Cells (Auto) 10-20 H (0-5) /lpf Urine Bacteria (Auto) Negative (Negative) Imaging Data Radiologist's Impression: Radiology results as stated below per my review and the radiologist's interpretation: CT OF THE ABDOMEN AND PELVIS WITH CONTRAST CLINICAL HISTORY: Left lower quadrant abdominal pain. COMPARISON STUDY: CT of the abdomen and pelvis October 03, 2014. Abdominal ultrasound November 02, 2017. TECHNIQUE: Following IV administration of Optiray-320, axial images of the abdomen and pelvis were obtained from the lung bases to the proximal femurs. Images were reviewed in the axial, sagittal, and coronal planes. IV contrast was administered without complication. Automated exposure control was utilized for the study. A dose lowering technique was utilized adhering to the principles of ALARA. CT DOSE: 607.30 mGy.cm FINDINGS: Imaged portions of the lower chest demonstrate mild cardiac magnet. A small hiatal hernia is present. A lateral segment hepatic cyst is noted. There are large bilateral renal cysts. There is no biliary or pancreatic ductal dilatation. There is no hydronephrosis. The appendix is normal. There is no evidence for bowel obstruction. There is a moderate amount of stool within the colon. Mild pericolonic infiltration involving the descending colon and proximal sigmoid colon is noted. There are scattered colonic diverticula. There is no abscess or free air. There is no lymphadenopathy. Major vasculature is patent. No suspicious osseous lesions are noted. IMPRESSION: 1. Mild pericolonic infiltration of the mid to distal descending colon and proximal sigmoid colon which represents a nonspecific colitis. Scattered colonic diverticula however the appearance is not suggestive of acute diverticulitis. Moderate amount of stool within the colon. If not recently performed, a follow- up colonoscopy once symptoms resolve is suggested. No bowel obstruction. No mucosal lesion by CT. 2. Large bilateral renal cysts. 3. Normal appendix. 4. Small hiatal hernia. ACT 112: Negative or not required by law. Electronically signed by: Cedric Jimenez M.D. 03/01/2019 2:33 PM Blood Pressure Blood Pressure Findings: Elevated blood pressure Blood Pressure Disposition: further management by hospitalist JAMARCUS Mg The patient is a 68-year-old female who presented to the emergency department for abdominal pain. The patient did not have a surgical abdomen on physical exam but had very significant pain with palpation. I discussed the patient's laboratory and radiographic studies with her. She was treated with IV fluids and IV pain medication. She still had very significant pain and was uncomfortable managing this pain at home. For this reason I discussed her case with the on-call [facility] hospitalist group. They have agreed to evaluate the patient in the emergency department for further management and disposition. Impression & Plan Abdominal pain, LLQ, Intractable abdominal pain, Colitis Discharge Plan Visit Data Chief Complaint: Abdominal Pain ED Provider: Josh Shi Discharge Problem: Abdominal pain, LLQ, Intractable abdominal pain, Colitis Patient Disposition: Being Evaluated by Hospitalist Forms Stand Alone Forms: Call Back Authorization, [facility] Prescriptions Prescriptions: No Action epinephrine [EpiPen] 0.3 mg/0.3 mL auto-injector 0.3 mg IM Q20M PRN (Reason: anaphylaxis) Qty: 2 RF: 5 famotidine 20 mg tablet 20 mg PO BID 90 Days Qty: 180 RF: 3 [place] 160 mcg/actuation HFA aerosol inhaler 1 puffs INH BID RF: 0 calcium carbonate [Antacid (calcium carbonate)] 200 mg calcium (500 mg) tablet,chewable 200 mg PO BID Qty: 60 RF: 0 cholecalciferol (vitamin D3) 1,000 unit capsule 1,000 units PO DAILY Qty: 30 RF: 0 diltiazem HCl 30 mg tablet 30 mg PO DAILY PRN (Reason: palpitations) Qty: 90 RF: 0 ezetimibe 10 mg tablet 10 mg PO HS Qty: 90 RF: 3 albuterol sulfate [ProAir HFA] 90 mcg/actuation HFA aerosol inhaler 1 puffs INH Q6H PRN (Reason: shortness of breath or wheezing) Qty: 8.5 RF: 0 cyanocobalamin (vitamin B-12) 1,000 mcg/mL solution 1,000 mcg IM MONTHLY RF: 0 quinapril 20 mg Tablet 10 mg PO QAM RF: 0 aspirin [Adult Aspirin Regimen] 81 mg tablet,delayed release (DR/EC) 81 mg PO HS RF: 0 quinapril 20 mg tablet 20 mg PO QPM RF: 0 furosemide 20 mg tablet 20 mg PO DAILY PRN (Reason: prior to flying) RF: 0 fluticasone propionate [Allergy Relief (fluticasone)] 50 mcg/actuation spray,suspension 1 sprays INTNAS QAM RF: 0 All Day Allergy (cetirizine) 10 mg capsule 10 mg PO HS RF: 0 Referrals Referrals: Josh Miner MD [Primary Care Provider] - The scribe's documentation has been prepared under my direction and personally reviewed by me in its entirety. I confirm that the note above accurately reflects all work, treatment, procedures, and medical decision making performed by me.
[2019-03-01 14:29] LABS: ALC (manual) 5.53 K/uL (1.2-3.4); ANC (manual) 2.46 K/uL (1.4-6.5); Eosinophils # (manual) 0.16 K/uL (0-0.5); Eosinophils % (manual) 1.8 %; Large Granular Lymph # (manua 3.07 K/uL; Lymphocytes # (manual) 2.46 K/uL (1.2-3.4); Lymphocytes % (manual) 28.1 %; Monocytes # (manual) 0.61 K/uL (0.11-0.59); Neutrophils # (manual) 2.46 K/uL (1.4-6.5); Neutrophils % (manual) 28.1 %; RBC Morphology Unremarkable
--- NOTE | 2019-03-01 14:34 | CT Scan Report ---
CT OF THE ABDOMEN AND PELVIS WITH CONTRAST CLINICAL HISTORY: Left lower quadrant abdominal pain. COMPARISON STUDY: CT of the abdomen and pelvis October 03, 2014. Abdominal ultrasound November 02, 2017. TECHNIQUE: Following IV administration of Optiray-320, axial images of the abdomen and pelvis were ob tained from the lung bases to the proximal femurs. Images were reviewed in the axial, sagittal, and c oronal planes. IV contrast was administered without complication. Automated exposure control was uti lized for the study. A dose lowering technique was utilized adhering to the principles of ALARA. CT DOSE: 607.30 mGy.cm FINDINGS: Imaged portions of the lower chest demonstrate mild cardiac magnet. A small hiatal hernia i s present. A lateral segment hepatic cyst is noted. There are large bilateral renal cysts. There is n o biliary or pancreatic ductal dilatation. There is no hydronephrosis. The appendix is normal. There is no evidence for bowel obstruction. There is a moderate amount of stool within the colon. Mild danish colonic infiltration involving the descending colon and proximal sigmoid colon is noted. There are sc attered colonic diverticula. There is no abscess or free air. There is no lymphadenopathy. Major vasc ulature is patent. No suspicious osseous lesions are noted. IMPRESSION: 1. Mild pericolonic infiltration of the mid to distal descending colon and proximal sigmoid colon whi ch represents a nonspecific colitis. Scattered colonic diverticula however the appearance is not sugg estive of acute diverticulitis. Moderate amount of stool within the colon. If not recently performed, a follow-up colonoscopy once symptoms resolve is suggested. No bowel obstruction. No mucosal lesion by CT. 2. Large bilateral renal cysts. 3. Normal appendix. 4. Small hiatal hernia. ACT 112: Negative or not required by law. Electronically signed by: Cedric Jimenez M.D. 03/01/2019 2:33 PM
[2019-03-01 14:59] LABS: Appearance Urine Clear (Clear); Bacteria Urine Automated Negative (Negative); Bilirubin Urine Negative (Negative); Blood Urine Trace (Negative); Color Urine Yellow; Glucose Urine UA Negative (Negative); Ketones Urine Negative (Negative); Leukocyte Esterase Urine Negative (Negative); Nitrite Urine Negative (Negative); Protein Urine Negative (Negative); RBC Urine Automated 0-4 /hpf (0-4); Specific Gravity Urine 1.036 (1.000-1.030); Urobilinogen Urine Negative (Negative)
[2019-03-01] MEDS ORDERED: ALUMINUM/MAGNESIUM SUSP 30 ML UDC PO PRN (18:13)
[2019-03-01] MEDS ORDERED: MAGNESIUM HYDROXIDE SUSP 30 ML UDC PO PRN (18:13)
[2019-03-01] MEDS ORDERED: ONDANSETRON INJ 2 MG/ML 2 ML VIAL IV PRN (18:13)
[2019-03-01] MEDS ORDERED: POLYETHYLENE (MIRALAX) 17 GM PACK PO ONE (18:17)
--- NOTE | 2019-03-01 18:31 | History & Physical Report ---
Date of Service March 01, 2019 Assessment & Plan (1) Intractable abdominal pain: 68y/o with intractable abdominal pain, with nausea and vomiting; CT demonstrated increased stool burden with concern for potential colitis/diverticulitis Intractable Abdominal Pain: - one bout of nausea and vomiting, with left sided abdominal pain; not relieved with bowel movements - CT scan demonstrated increased stool burden, and numerous diverticulum - given Miralax x2, with subsequent PRN Q2hr - IV tylenol and PO toradol as needed for continued intractable pain - will give NSS @ 80ml/Hr for hydration until able to tolerate PO intake - will hold on addition of abx until determination of true need Hypertension: - continue home medications Asthma: - advised family to bring home inhaler for better control; but albuterol and flovent available until that time B12 deficiency anemia: - patient currently doing well - continue to monitor, and can continue B12 supp as needed Paroxysmal Atrial Tachycardia: - stable on medications - per pipe fitter apprentice Diltiazem 30mg daily PRN for symptomatic tachycardia Diet: NPO with meds and sips Code: Full DVT PPX: SCDs (2) Factor V Leiden, prothrombin gene mutation: (3) HTN (hypertension): (4) Asthma: (5) B12 deficiency anemia: (6) Paroxysmal atrial tachycardia: History of Present Illness Chief Complaint: Abdominal Pain Primary Care Provider: Josh Miner MD Ms. Devine is a 68y/o Female, who presented to the emergency room following having intense sharp abdominal pain, with nausea and vomiting after attempting to go to the bathroom early this morning. Leading up to this had no changes in her bowel movements over the last several days, but this morning just felt an increased sense that she needed to go; upon sitting and starting to strain to go she had the intense sharp pain directly below her belly button that immediately made her feel nauseated. On arrival of EMS had one episode of emesis that was red in color but she believes this was due to what she ate earlier in the day. Since then her abdominal pain has migrated more to her left side, and has decreased in overall intensity Allergies Allergy/AdvReac Type Severity Reaction Status Date / Time apple Allergy Severe mouth/lips Verified 03/01/19 14:00 tingling iron Allergy Severe IV IRON Verified 03/01/19 14:00 SUCROSE-WEAKNESS,LT HEADED,CHEST HEAVINESS, HOT SENS orange Allergy Severe mouth and Verified 03/01/19 14:00 lips tingle/itching peanut Allergy Severe ANAPHYLAXIS Verified 03/01/19 14:00 pistachio nut Allergy Severe "start of Verified 03/01/19 14:00 anaphylaxis" shellfish derived Allergy Severe ANAPHYLAXIS Verified 03/01/19 14:00 Sulfa (Sulfonamide Allergy Severe TACHYCARDIA,? Verified 03/01/19 14:00 Antibiotics) DRUG INTERACTION Venofer Allergy Unknown IV IRON Verified 05/18/17 10:55 SUCROSE-WEAKNESS,LT HEADED,CHEST HEAVINESS, HOT SENS Insect Extract Allergy Severe ANAPHYLAXIS Uncoded 03/01/19 14:00 Home Medications Home Medications Medication Instructions Recorded Confirmed Type albuterol sulfate 90 mcg/actuation 1 puffs INH Q6H PRN #8.5 gm 08/19/18 03/01/19 Rx aerosol inhaler calcium carbonate 200 mg calcium 200 mg PO BID #60 tab 08/19/18 03/01/19 Rx (500 mg) chewable tablet cholecalciferol (vitamin D3) 25 1,000 units PO DAILY #30 cap 08/19/18 03/01/19 Rx mcg (1,000 unit) capsule diltiazem HCl 30 mg tablet 30 mg PO DAILY PRN #90 tab 08/19/18 03/01/19 Rx ezetimibe 10 mg tablet 10 mg PO HS #90 tab 08/19/18 03/01/19 Rx cyanocobalamin (vitamin B-12) 1,000 mcg IM MONTHLY ml 08/20/18 03/01/19 History 1,000 mcg/mL injection solution epinephrine 0.3 mg/0.3 mL 0.3 mg IM Q20M PRN #2 ea 11/29/18 03/01/19 Rx injection, auto-injector famotidine 20 mg tablet 20 mg PO BID 90 Days #180 tab 12/18/18 03/01/19 Rx ciclesonide 160 mcg/actuation 1 puffs INH BID gm 01/23/19 03/01/19 History aerosol inhaler aspirin [Adult Aspirin Regimen] 81 mg PO HS 02/28/19 03/01/19 History cetirizine [All Day Allergy 10 mg PO HS 02/28/19 03/01/19 History (cetirizine)] fluticasone propionate [Allergy 1 sprays INTNAS QAM 02/28/19 03/01/19 History Relief (fluticasone)] furosemide 20 mg PO DAILY PRN 02/28/19 03/01/19 History quinapril 10 mg PO QAM 02/28/19 03/01/19 History quinapril 20 mg PO QPM 02/28/19 03/01/19 History Past Med/Surg History Medical History Asthma inhaler daily/prn Cardiac murmur Diverticular disease Factor 5 Leiden mutation, heterozygous prothrombin gene mutation Gout Hiatal hernia History of kidney stones Hyperlipidemia Hypertension IBS (irritable bowel syndrome) Medullary sponge kidney (Acute) Nausea and vomiting after administration of anesthetic agent Osteoarthritis Osteoporosis Paroxysmal atrial tachycardia follows with Dr. 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 Beliefs That Will Affect Care: None marital status: Current Living Situation: Spouse Feels Safe at Home: Yes Smoking Status: Current every day smoker Second Hand Exposure: Yes (parents smoked) ; Hx Alcohol Use: No Hx Substance Use: No Seatbelt Use: always Review of Systems Constitutional: no fever, no chills, no sweats and no weakness Eyes: no diplopia and no spots in vision Respiratory: no cough, no dyspnea and no wheezing Cardiovascular: no chest pain, no palpitations and no edema Gastrointestinal: + abdominal pain, + bloating and + vomiting; no nausea, no change in bowel habits, no constipation and no diarrhea/loose stools Neurologic: no falls, no tingling and no headache(s) Allergy / Immunological: no GI upset with certain foods, no urticaria and no wheezing Physical Exam Constitutional: WD/WN, vitals as above Eyes: PERRL, conjunctivae normal, anicteric sclerae ENMT: external ear and nose normal, oropharynx normal Respiratory: normal respiratory effort, lungs clear to auscultation Cardiovascular: Rate/Rhythm: regular rate and regular rhythm Heart Sounds: normal S1 and normal S2; no gallop, no murmur and no cardiac rub Gastrointestinal (Abdomen): Inspection/Auscultation: normal bowel sounds Percussion/Palpation: + abdomen tender (Left quadrants) and abdomen soft; no guarding, abdomen not rigid and no hepatosplenomegaly Skin: no rashes, warm and dry Lymphatic: no cervical or axillary lymphadenopathy Results & Data Vital Signs (Past 12 Hours) Vital Signs Temp Pulse Resp BP Pulse Ox 03/01/19 14:46 88 17 147/83 H 03/01/19 14:30 75 12 03/01/19 14:10 77 25 H 03/01/19 13:30 67 23 03/01/19 13:20 36.2 C L 71 20 179/87 H 97 03/01/19 13:03 77 14 03/01/19 12:53 71 17 179/87 H Laboratory Results 03/01/19 03/01/19 03/01/19 Range/Units 14:47 12:40 12:40 WBC 8.76 (4.8-10.8) K/uL RBC 4.39 (4.2-5.4) M/uL Hgb 14.3 (12.0-16.0) g/dL Hct 42.5 (37-47) % MCV 96.8 (80-100) fL MCH 32.6 (25-34) pg MCHC 33.6 (32-36) g/dL RDW Std Deviation 48.1 H (36.4-46.3) fL RDW Coeff of James 13.5 (11.5-14.5) % Plt Count 262 (130-400) K/uL MPV 10.6 H (7.4-10.4) fL Neutrophils % (Manual) 28.1 % Lymphocytes % (Manual) 28.1 % Monocytes % (Manual) 7.0 % Eosinophils % (Manual) 1.8 % Neutrophils # (Manual) 2.46 (1.4-6.5) K/uL Total Absolute Neuts 2.46 (1.4-6.5) K/uL Lymphocytes # (Manual) 2.46 (1.2-3.4) K/uL Total Abs Lymphocytes 5.53 H (1.2-3.4) K/uL Monocytes # (Manual) 0.61 H (0.11-0.59) K/uL Eosinophils # (Manual) 0.16 (0-0.5) K/uL Large Granular Lymphs 35.0 % # Lrg Granular Lymphs 3.07 K/uL Blood Smear Review Pending RBC Morphology Unremarkable Sodium 137 (136-145) mmol/L Potassium 3.8 (3.5-5.1) mmol/L Chloride 105 (98-107) mmol/L Carbon Dioxide 26 (21-32) mmol/L Anion Gap 6.0 (3-11) BUN 16 (7-18) mg/dl Creatinine 0.83 (0.6-1.2) mg/dl Est Cr Clr Drug Dosing 61.7 ml/min Est GFR ( Amer) 83.4 Est GFR (Non-Af Amer) 71.9 BUN/Creatinine Ratio 19.6 (10-20) Glucose 109 H (70-99) mg/dl Calcium 10.1 (8.5-10.1) mg/dl Total Bilirubin 0.4 (0.2-1) mg/dl AST 17 (15-37) U/L ALT 21 (12-78) U/L Alkaline Phosphatase 79 (45-117) U/L Total Protein 8.7 H (6.4-8.2) gm/dl Albumin 4.3 (3.4-5.0) gm/dl Globulin 4.4 H (2.5-4.0) gm/dl Albumin/Globulin Ratio 1.0 (0.9-2) Lipase 297 (73-393) U/L Urine Color Yellow Urine Appearance Clear (Clear) Urine pH 5.0 (4.5-7.5) Ur Specific [place] 1.036 H (1.000-1.030) Urine Protein Negative (Negative) Urine Glucose (UA) Negative (Negative) Urine Ketones Negative (Negative) Urine Blood Trace H (Negative) Urine Nitrite Negative (Negative) Urine Bilirubin Negative (Negative) Urine Urobilinogen Negative (Negative) Ur Leukocyte Esterase Negative (Negative) Urine WBC (Auto) 1-5 (0-5) /hpf Urine RBC (Auto) 0-4 (0-4) /hpf U Hyaline Cast (Auto) 1-5 (0-5) /lpf U Epithel Cells (Auto) 10-20 H (0-5) /lpf Urine Bacteria (Auto) Negative (Negative) Medications Administered Current Inpatient Medications Al Hydrox/Mg Hydrox/Simethicone (Maalox) 30 ml PO Q6H PRN PRN Reason: Dyspepsia Stop: 03/31/19 18:12 Albuterol (Ventolin Hfa) 1 puffs INH Q6H PRN PRN Reason: Shortness Of Breath Stop: 03/31/19 18:59 Aspirin (Ecotrin Ectab) 81 mg PO NOW STA Stop: 03/01/19 18:53 Cetirizine HCl (Zyrtec) 10 mg PO HS [place] Stop: 03/31/19 20:59 Diltiazem HCl (Cardizem) 30 mg PO DAILY PRN PRN Reason: tachycardia Stop: 03/31/19 18:51 Ezetimibe (Zetia) 10 mg PO HS [place] Stop: 03/31/19 20:59 Famotidine (Pepcid) 20 mg PO BID [place] Stop: 03/31/19 20:59 Acetaminophen (Ofirmev) 1,000 mg in 100 mls @ 400 mls/hr IV Q8H PRN PRN Reason: abdominal pain Stop: 03/04/19 18:12 Sodium Chloride (Nss 1000ml) 1,000 mls @ 80 mls/hr IV .[id number] [place] Stop: 03/31/19 18:29 Ioversol (Optiray 320 100ml) 94 ml IV ONCE PRN PRN Reason: Interaction Checking Stop: 03/05/19 13:48 Last Admin: 03/01/19 13:49 Dose: 94 ml Documented by: Ketorolac Tromethamine (Toradol) 10 mg PO Q6H PRN PRN Reason: uncontrolled abdominal pain Stop: 03/06/19 18:17 Magnesium Hydroxide (Milk Of Magnesia) 30 ml PO Q6H PRN PRN Reason: Constipation Stop: 03/31/19 18:12 Morphine Sulfate (Morphine Sulfate) 4 mg IV Q15M PRN PRN Reason: Pain Stop: 03/15/19 13:17 Last Admin: 03/01/19 18:28 Dose: 4 mg Documented by: Ondansetron HCl (Zofran) 4 mg IV Q6H PRN PRN Reason: Nausea Stop: 03/31/19 18:12 Polyethylene Glycol (Miralax Powder Packet) 17 gm PO Q2H PRN PRN Reason: Constipation Stop: 03/31/19 18:12 Code Status & VTE Plan VTE Prophylaxis Plan VTE Prophylaxis will be ordered: Yes Supervising Physician Co-Signing Physician Notes I personally examined the patient and verified all bermudez points of history and exam, discussed case, and agree with decision making with Dr Polanco. Left lower quadrant abdominal pain nausea. No fevers chills or sweats no body aches. Started abruptly, stereotyped episode is a wave of nausea followed by a wave of left lower quadrant pain. Feels like she has to have a bowel movement but generally has not been able todid a little in the ER, although she did not see it to be able to describe. Vitals noted, in general she is awake and alert pleasant overall no distress, although she does appear a little bit tense. HEENT normocephalic atraumatic mucous membranes are moist. Abdomen is soft no epigastric tenderness, left lower quadrant tenderness is present and fairly exquisite but without any guarding, rebound, or rigidity. Skin shows no rashes no pallor or icterus. No focal neuro deficits. CT reviewedboth report and films. Labs noted. Left lower quadrant abdominal pain and nauseawhile the CT does show a little bit of a colitis type picture given that it is not overtly diverticulitis, given that she does not have a fever, white count, or tachycardia, it seems just as probable this is from bad constipation causing a bit of a stercoral picture versus mild diverticulitis with bad constipation. Either way is not abundantly clear that she requires antibiotics, and after discussion of risks and benefits with the patient, she would prefer a more conservative approach with escalation to antibiotics if necessary. Bowel regimen, serial exams, serial labs. Reddish vomituswith no epigastric tenderness stable hemodynamics and no recurrence, is highly unlikely that she has any bleeding peptic ulcer disease. Serial exams and follow closely, but she seems safe and stable from this perspective, she was eating berries before she vomited, and more than likely the red appearance of the vomitus was due to the berries. Again follow. Otherwise as above Resident Activity Tracking Resident Involvement: Resident Care Provided Care Provided: [facility]
[2019-03-01] MEDS ORDERED: ALBUTEROL HFA 8 GM INHALER INH PRN ×2 (18:52→20:33)
[2019-03-01] MEDS ORDERED: ASPIRIN 81 MG ECTAB PO STA (18:52)
[2019-03-01] MEDS ORDERED: dilTIAZem HCL 30 MG TAB PO PRN ×2 (18:52→20:07)
--- NOTE | 2019-03-01 19:57 | Billing Data ---
Date of Service March 01, 2019 Coding Level of Care Code 15196 OBS Care - Level 3
[2019-03-01] MEDS ORDERED: EPINEPHRINE ADULT AUTO-INJECT 0.3 MG SYR IM PRN (20:07)
[2019-03-01] MEDS: ACETAMINOPHEN 1,000 MG/100 ML VIAL IV PRN (20:19)
[2019-03-01] MEDS: SODIUM CHLORIDE 0.9% 1000ML 1,000 ML IV SCH (20:20)
[2019-03-01] MEDS ORDERED: FLUTICASONE HFA 110MCG INHALER INH SCH (21:00)
[2019-03-01] MEDS ORDERED: EZETIMIBE 10 MG TABLET PO SCH (21:00)
[2019-03-01] MEDS ORDERED: FAMOTIDINE 20 MG TAB PO SCH (21:00)
[2019-03-01] MEDS ORDERED: CETIRIZINE HCL 10 MG TABLET PO SCH (21:00)
[2019-03-01] MEDS: EZETIMIBE 10 MG TABLET PO SCH (21:42)
[2019-03-01] MEDS: FAMOTIDINE 20 MG TAB PO SCH (21:43)
[2019-03-01] MEDS: ENALAPRIL MALEATE 10 MG TAB PO SCH (21:43)
[2019-03-01] MEDS: CETIRIZINE HCL 10 MG TABLET PO SCH (21:43)
[2019-03-01] MEDS: ASPIRIN 81 MG ECTAB PO SCH (21:44)
[2019-03-01] MEDS: CALCIUM CARBONATE 500 MG CHEWABLE TAB PO SCH (21:46)
[2019-03-01] MEDS ORDERED: PROCHLORPERAZINE 5 MG in SYRINGE 4 ML IV ONE (22:40)
[2019-03-01] MEDS: KETOROLAC TROMETHAMINE 10 MG TABLET PO PRN (23:20)
[2019-03-01] MEDS: POLYETHYLENE (MIRALAX) 17 GM PACK PO PRN (23:28)
[2019-03-02] MEDS: POLYETHYLENE (MIRALAX) 17 GM PACK PO PRN ×6 (02:28→17:22)
[2019-03-02] MEDS: ACETAMINOPHEN 1,000 MG/100 ML VIAL IV PRN ×2 (05:14→15:16)
[2019-03-02 07:41] LABS: Basophils # (auto) 0.01 K/uL (0-0.2); Basophils % (auto) 0.1 %; Hematocrit (blood only) 38.4 % (37-47); Hemoglobin 12.6 g/dL (12.0-16.0); Immature Granulocytes # (auto) 0.06 K/uL (0.00-0.02); Immature Granulocytes % (auto) 0.3 %; Lymphocytes # (auto) 1.74 K/uL (1.2-3.4); Lymphocytes % (auto) 9.9 %; Mean Corpuscular Hemoglobin 31.6 pg (25-34); Mean Corpuscular Hgb Conc 32.8 g/dL (32-36); Mean Corpuscular Volume 96.2 fL (80-100); Mean Platelet Volume 10.4 fL (7.4-10.4); Monocytes # (auto) 1.21 K/uL (0.11-0.59); Monocytes % (auto) 6.9 %; Neutrophils % (auto) 82.8 %; Platelet Count 264 K/uL (130-400); RDW Coefficient of Variation 13.8 % (11.5-14.5); RDW Standard Deviation 48.9 fL (36.4-46.3); Red Blood Count 3.99 M/uL (4.2-5.4); White Blood Count 17.62 K/uL (4.8-10.8)
[2019-03-02 08:12] LABS: BUN Creatinine Ratio 16.5 (10-20); Calcium 8.8 mg/dl (8.5-10.1); Creatinine Clr Calc Pharmacy 51.7 ml/min; Est GFR (African American) 67.4; Est GFR (Non-African American) 58.1; Potassium 3.8 mmol/L (3.5-5.1)
[2019-03-02] MEDS: SODIUM CHLORIDE 0.9% 1000ML 1,000 ML IV SCH ×2 (08:29→21:07)
[2019-03-02] MEDS: FAMOTIDINE 20 MG TAB PO SCH ×2 (08:31→20:36)
[2019-03-02] MEDS: ENALAPRIL MALEATE 10 MG TAB PO SCH ×2 (08:41→20:35)
[2019-03-02] MEDS: CALCIUM CARBONATE 500 MG CHEWABLE TAB PO SCH ×2 (08:45→21:06)
[2019-03-02] MEDS: FLUTICASONE PROPIONATE NA SPR 16 GM BTL SCH (08:46)
[2019-03-02] MEDS: KETOROLAC TROMETHAMINE 10 MG TABLET PO PRN ×2 (10:54→20:28)
[2019-03-02] MEDS ORDERED: PROAIR INH PRN (13:53)
[2019-03-02] MEDS ORDERED: bisacodyL 10 MG SUPP PR PRN (18:04)
--- NOTE | 2019-03-02 18:24 | Hospitalist Progress Note ---
Date of Service March 02, 2019 Assessment & Plan (1) Intractable abdominal pain: 68y/o with intractable abdominal pain, with nausea and vomiting; CT demonstrated increased stool burden with concern for potential colitis/diverticulitis Intractable Abdominal Pain: - ? colitis vs stool impaction - one bout of nausea and vomiting on admission, with left sided abdominal pain; not relieved with bowel movements - significant bowel movements throughout the day without relief of abdominal pain - CT scan demonstrated increased stool burden, and numerous diverticulum - given Miralax x2, with subsequent PRN Q2hr; received 9 doses overnight and into the day without relief of her abdominal pain - IV tylenol and PO toradol as needed for continued intractable pain - will give NSS @ 80ml/Hr for hydration until able to tolerate PO intake - starting Unasyn for likely colitis in the setting of unremitting pain despite aggressive laxatives - KUB in the AM Hypertension: - continue home medications Asthma: - continue home medication B12 deficiency anemia: - patient currently doing well - continue to monitor, and can continue B12 supp as needed Paroxysmal Atrial Tachycardia: - stable on medications - 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 Seen twice. This morning pain about the same, had only had a few watery bowel movements, later revisited pain about the same but has had copious amounts of bowel movements to where she believes she is probably cleared out. Also feels a little bit flushed. Vitals noted, in general she is awake and alert pleasant overall no distress, HEENT normocephalic atraumatic mucous membranes are moist. Abdomen soft, both times she has almost exact same spot left lower quadrant exquisite tenderness that does not change/improved/alter despite her rather copious bowel movements. No guarding, no rebound, no rigidity. White count noted. Left lower quadrant abdominal pain and nauseainitial differential was a diverticulitis/stercoral colitis picture versus simply severe constipationgiven that she had had no white count, fevers, chills, sweats, leukocytosis on presentation; patient preferred attempting to clear the bowels and seeing if it improves her symptoms prior to initiating antibiotics, and this seemed quite p lausible/reasonable. Unfortunately with moving her stool her pain has not improved, she is now bumped her white count and is appearing a little bit flushed in a way that appears like she might be working towards a fever. With all of this we will start her on antibiotic coverage for what is probably a mild diverticulitis or stercoral colitis. Anticipate vast improvement. Reddish vomituswith no epigastric tenderness stable hemodynamics and no recurrence, is highly unlikely that she has any bleeding peptic ulcer disease. She appears totally stable in this regard Subjective Patient has watery bowel movements throughout the day today, but still has this consistent abdominal pain that is sharp in nature and has not completely resolved as it consistently comes right before she has to have a bowel movement. Feels consistent with the pain that she had that brought her to the hospital Review of Systems Constitutional: no fever, no chills and no sweats Gastrointestinal: + abdominal pain; no nausea and no vomiting Physical Exam Constitutional: WD/WN, vitals as above Eyes: PERRL, conjunctivae normal, anicteric sclerae Respiratory: normal respiratory effort, lungs clear to auscultation Cardiovascular: Rate/Rhythm: regular rate and regular rhythm Heart Sounds: normal S1 and normal S2; no gallop, no murmur and no cardiac rub Gastrointestinal (Abdomen): Inspection/Auscultation: normal bowel sounds Pe rcussion/Palpation: + abdomen tender (Left quadrants) and abdomen soft; no guarding, abdomen not rigid and no hepatosplenomegaly Results & Data Vital Signs (Past 12 Hours) Vital Signs Temp Pulse Resp BP Pulse Ox 03/02/19 15:24 37.3 C 90 16 140/83 94 03/02/19 15:03 37.6 C H 03/02/19 14:20 37.6 C H 03/02/19 07:22 37.3 C 74 18 111/75 93 Laboratory Results 03/02/19 03/02/19 Range/Units 06:58 06:58 WBC 17.62 H (4.8-10.8) K/uL RBC 3.99 L (4.2-5.4) M/uL Hgb 12.6 (12.0-16.0) g/dL Hct 38.4 (37-47) % MCV 96.2 (80-100) fL MCH 31.6 (25-34) pg MCHC 32.8 (32-36) g/dL RDW Std Deviation 48.9 H (36.4-46.3) fL RDW Coeff of James 13.8 (11.5-14.5) % Plt Count 264 (130-400) K/uL MPV 10.4 (7.4-10.4) fL Immature Gran % (Auto) 0.3 % Neut % (Auto) 82.8 % Lymph % (Auto) 9.9 % [place] % (Auto) 6.9 % Eos % (Auto) 0.0 % Baso % (Auto) 0.1 % Immature Gran # (Auto) 0.06 H (0.00-0.02) K/uL Neut # (Auto) 14.60 H (1.4-6.5) K/uL Lymph # (Auto) 1.74 (1.2-3.4) K/uL [place] # (Auto) 1.21 H (0.11-0.59) K/uL Eos # (Auto) 0.00 (0-0.5) K/uL Baso # (Auto) 0.01 (0-0.2) K/uL Sodium 135 L (136-145) mmol/L Potassium 3.8 (3.5-5.1) mmol/L Chloride 102 (98-107) mmol/L Carbon Dioxide 24 (21-32) mmol/L Anion Gap 9.0 (3-11) BUN 16 (7-18) mg/dl Creatinine 0.99 (0.6-1.2) mg/dl Est Cr Clr Drug Dosing 51.7 ml/min Est GFR ( Amer) 67.4 Est GFR (Non-Af Amer) 58.1 BUN/Creatinine Ratio 16.5 (10-20) Glucose 115 H (70-99) mg/dl Calcium 8.8 (8.5-10.1) mg/dl Medications Administered Current Inpatient Medications Al Hydrox/Mg Hydrox/Simethicone (Maalox) 30 ml PO Q6H PRN PRN Reason: Dyspepsia Stop: 03/31/19 18:12 Aspirin (Ecotrin Ectab) 81 mg PO [facility] Stop: 03/31/19 20:59 Last Admin: 03/01/19 21:44 Dose: 81 mg Documented by: Bisacodyl (Dulcolax) 10 mg ME Q12H PRN PRN Reason: Constipation Stop: 04/01/19 18:03 Calcium Carbonate (Tums) 200 mg PO BID [facility] Stop: 03/31/19 20:59 Last Admin: 03/02/19 08:45 Dose: 200 mg Documented by: Cetirizine HCl (Zyrtec) 10 mg PO [facility] Stop: 03/31/19 20:59 Last Admin: 03/01/19 21:43 Dose: 10 mg Documented by: Diltiazem HCl (Cardizem) 30 mg PO DAILY PRN PRN Reason: palpitations Stop: 03/31/19 20:06 Ezetimibe (Zetia) 10 mg PO [facility] Stop: 03/31/19 20:59 Last Admin: 03/01/19 21:42 Dose: Not Given Documented by: Enalapril Maleate (Vasotec) 20 mg PO QPM [facility] Stop: 03/31/19 20:59 Last Admin: 03/01/19 21:43 Dose: 20 mg Documented by: Enalapril Maleate (Vasotec) 10 mg PO [facility] Stop: 04/01/19 08:59 Last Admin: 03/02/19 08:41 Dose: 10 mg Documented by: Epinephrine HCl (Epipen) 0.3 mg IM Q20M PRN PRN Reason: anaphylaxis Stop: 03/31/19 20:06 Famotidine (Pepcid) 20 mg PO BID [facility] Stop: 03/31/19 20:59 Last Admin: 03/02/19 08:31 Dose: 20 mg Documented by: Fluticasone Propionate (Flonase) 1 sprays NA QAM [facility] Stop: 04/01/19 08:59 Last Admin: 03/02/19 08:46 Dose: 1 sprays Documented by: Acetaminophen (Ofirmev) 1,000 mg in 100 mls @ 400 mls/hr IV Q8H PRN PRN Reason: abdominal pain Stop: 03/04/19 18:12 Last Infusion: 03/02/19 15:46 Dose: Infused Documented by: Sodium Chloride (Nss 1000ml) 1,000 mls @ 80 mls/hr IV .[id number] [place] Stop: 03/31/19 18:29 Last Admin: 03/02/19 08:29 Dose: 80 mls/hr Documented by: Ketorolac Tromethamine (Toradol) 10 mg PO Q6H PRN PRN Reason: uncontrolled abdominal pain Stop: 03/06/19 18:17 Last Admin: 03/02/19 10:54 Dose: 10 mg Documented by: Magnesium Hydroxide (Milk Of Magnesia) 30 ml PO Q6H PRN PRN Reason: Constipation Stop: 03/31/19 18:12 [place]: Non- Formulary Patient's Own Med 1 ea INH BID [place] Stop: 04/01/19 20:59 Proair Hfa: Non- Formulary Patient's Own Med 1 ea INH Q6H PRN PRN Reason: Shortness Of Breath Or Wheezing Stop: 04/01/19 13:52 Ondansetron HCl (Zofran) 4 mg IV Q6H PRN PRN Reason: Nausea Stop: 03/31/19 18:12 Last Admin: 03/01/19 20:16 Dose: 4 mg Documented by: Polyethylene Glycol (Miralax Powder Packet) 17 gm PO Q2H PRN PRN Reason: Constipation Stop: 03/31/19 18:12 Last Admin: 03/02/19 17:22 Dose: 17 gm Documented by: Resident Activity Tracking Resident Involvement: Resident Care Provided Care Provided: Adult Hospital Medicine
[2019-03-02] MEDS ORDERED: PIPERACILL/TAZOBAC CONSULT ACTIVE PRN (19:31)
[2019-03-02] MEDS ORDERED: PIPERACILLIN/TAZOBACTAM 3.375 GM in DEXTROSE 5% 100 ML IV ONE (20:30)
[2019-03-02] MEDS: EZETIMIBE 10 MG TABLET PO SCH (20:34)
[2019-03-02] MEDS: CETIRIZINE HCL 10 MG TABLET PO SCH (20:35)
[2019-03-02] MEDS: ASPIRIN 81 MG ECTAB PO SCH (20:36)
[2019-03-02] MEDS: ALVESCO INH SCH (20:38)
[2019-03-03] MEDS: PIPERACILLIN/TAZOBACTAM 3.375 GM in DEXTROSE 5% 100 ML IV SCH ×3 (02:20→18:01)
[2019-03-03 08:36] LABS: Basophils # (auto) 0.03 K/uL (0-0.2); Basophils % (auto) 0.2 %; Eosinophils # (auto) 0.03 K/uL (0-0.5); Eosinophils % (auto) 0.2 %; Hematocrit (blood only) 34.7 % (37-47); Hemoglobin 11.3 g/dL (12.0-16.0); Immature Granulocytes # (auto) 0.04 K/uL (0.00-0.02); Immature Granulocytes % (auto) 0.2 %; Lymphocytes # (auto) 2.58 K/uL (1.2-3.4); Lymphocytes % (auto) 14.2 %; Mean Corpuscular Hemoglobin 31.6 pg (25-34); Mean Corpuscular Hgb Conc 32.6 g/dL (32-36); Mean Corpuscular Volume 96.9 fL (80-100); Monocytes # (auto) 1.46 K/uL (0.11-0.59); Monocytes % (auto) 8.1 %; Neutrophils # (auto) 13.99 K/uL (1.4-6.5); Neutrophils % (auto) 77.1 %; Platelet Count 227 K/uL (130-400); RDW Standard Deviation 49.9 fL (36.4-46.3); Red Blood Count 3.58 M/uL (4.2-5.4); White Blood Count 18.13 K/uL (4.8-10.8)
[2019-03-03] MEDS: FAMOTIDINE 20 MG TAB PO SCH ×2 (08:38→20:18)
[2019-03-03] MEDS: CALCIUM CARBONATE 500 MG CHEWABLE TAB PO SCH ×2 (08:38→20:24)
[2019-03-03] MEDS: FLUTICASONE PROPIONATE NA SPR 16 GM BTL SCH (08:39)
[2019-03-03] MEDS: SODIUM CHLORIDE 0.9% 1000ML 1,000 ML IV SCH ×2 (08:39→22:28)
[2019-03-03] MEDS: ALVESCO INH SCH ×2 (08:39→20:20)
[2019-03-03] MEDS: ENALAPRIL MALEATE 10 MG TAB PO SCH ×2 (08:39→20:19)
[2019-03-03 08:50] LABS: BUN Creatinine Ratio 15.7 (10-20); Calcium 8.5 mg/dl (8.5-10.1); Creatinine Clr Calc Pharmacy 66.5 ml/min; Est GFR (African American) 91.3; Est GFR (Non-African American) 78.8; Potassium 3.6 mmol/L (3.5-5.1)
--- NOTE | 2019-03-03 11:20 | XRay Report ---
KUB HISTORY: stool impaction COMPARISON: Abdomen and pelvis CT 02/21/2019. KUB 11/02/2017. FINDINGS: The bowel gas pattern is unremarkable. There are no dilated loops of small bowel to suggest an obstruction. No renal calculi. No ureteral calculi. No pneumoperitoneum or pneumatosis. Small am ount of stool within the colon which appears to have improved in the interval. IMPRESSION: Small amount of stool within the colon which appears to have improved in the interval. No evidence fo r bowel obstruction. ACT 112: Negative or not required by law. Electronically signed by: Toi Martinez M.D. 03/03/2019 11:18 AM
[2019-03-03] MEDS: ACETAMINOPHEN 500 MG TAB PO PRN ×2 (11:39→20:17)
--- NOTE | 2019-03-03 12:20 | Anesthesiology Consultation ---
Date of Service March 03, 2019 Assessment & Plan (1) Encounter for pre-operative examination: Chart Review Chart Review: entry manager initiated History Height/Weight Height: 5 ft 3 in Weight: 74.1 kg Allergies Allergy/AdvReac Type Severity Reaction Status Date / Time apple Allergy Severe mouth/lips Verified 03/01/19 14:00 tingling iron Allergy Severe IV IRON Verified 03/01/19 14:00 SUCROSE-WEAKNESS,LT HEADED,CHEST HEAVINESS, HOT SENS orange Allergy Severe mouth and Verified 03/01/19 14:00 lips tingle/itching peanut Allergy Severe ANAPHYLAXIS Verified 03/01/19 14:00 pistachio nut Allergy Severe "start of Verified 03/01/19 14:00 anaphylaxis" shellfish derived Allergy Severe ANAPHYLAXIS Verified 03/01/19 14:00 Sulfa (Sulfonamide Allergy Severe TACHYCARDIA,? Verified 03/01/19 14:00 Antibiotics) DRUG INTERACTION Venofer Allergy Unknown IV IRON Verified 05/18/17 10:55 SUCROSE-WEAKNESS,LT HEADED,CHEST HEAVINESS, HOT SENS Insect Extract Allergy Severe ANAPHYLAXIS Uncoded 03/01/19 14:00 Medications Home Medications Medication Instructions Recorded Confirmed Last Taken albuterol sulfate 90 mcg/actuation 1 puffs INH Q6H PRN #8.5 gm 08/19/18 03/01/19 02/28/19 aerosol inhaler calcium carbonate 200 mg calcium 200 mg PO BID #60 tab 08/19/18 03/01/19 02/28/19 (500 mg) chewable tablet cholecalciferol (vitamin D3) 25 1,000 units PO DAILY #30 cap 08/19/18 03/01/19 02/28/19 mcg (1,000 unit) capsule diltiazem HCl 30 mg tablet 30 mg PO DAILY PRN #90 tab 08/19/18 03/01/19 03/01/19 ezetimibe 10 mg tablet 10 mg PO HS #90 tab 08/19/18 03/01/19 02/28/19 cyanocobalamin (vitamin B-12) 1,000 mcg IM MONTHLY ml 08/20/18 03/01/1902/28 1,000 mcg/mL injection solution epinephrine 0.3 mg/0.3 mL 0.3 mg IM Q20M PRN #2 ea 11/29/18 03/01/19 02/28/19 injection, auto-injector famotidine 20 mg tablet 20 mg PO BID 90 Days #180 tab 12/18/18 03/01/19 03/01/19 ciclesonide 160 mcg/actuation 1 puffs INH BID gm 01/23/19 03/01/19 02/28/19 aerosol inhaler aspirin [Adult Aspirin Regimen] 81 mg PO HS 02/28/19 03/01/19 02/28/19 cetirizine [All Day Allergy 10 mg PO HS 02/28/19 03/01/19 02/28/19 (cetirizine)] fluticasone propionate [Allergy 1 sprays INTNAS QAM 02/28/19 03/01/19 02/28/19 Relief (fluticasone)] furosemide 20 mg PO DAILY PRN 02/28/19 03/01/19 02/28/19 quinapril 10 mg PO QAM 02/28/19 03/01/19 02/28/19 quinapril 20 mg PO QPM 02/28/19 03/01/19 02/28/19 Active Medications Generic Name Dose Route Start Last Admin Trade Name Freq PRN Reason Stop Dose Admin Acetaminophen 1,000 mg 03/03/19 11:35 03/03/19 11:39 Tylenol PO 04/02/19 11:34 1,000 mg Q8H PRN Administration ABDOMINAL PAIN Aspirin 81 mg 03/01/19 21:00 03/02/19 20:36 Ecotrin Ectab PO 03/31/19 20:59 81 mg HS SALVADOR Administration Bisacodyl 10 mg 03/02/19 18:04 03/02/19 19:41 Dulcolax [place] 04/01/19 18:03 10 mg Q12H PRN Administration Constipation Calcium Carbonate 200 mg 03/01/19 21:00 03/03/19 08:38 Tums PO 03/31/19 20:59 200 mg BID SALVADOR Administration Cetirizine HCl 10 mg 03/01/19 21:00 03/02/19 20:35 Zyrtec PO 03/31/19 20:59 10 mg HS SALVADOR Administration Ezetimibe 10 mg 03/01/19 21:00 03/02/19 20:34 Zetia PO 03/31/19 20:59 Not Given HS SALVADOR Enalapril Maleate 20 mg 03/01/19 21:00 03/02/19 20:35 Vasotec PO 03/31/19 20:59 20 mg QPM SALVADOR Administration Enalapril Maleate 10 mg 03/02/19 09:00 03/03/19 08:39 Vasotec PO 04/01/19 08:59 10 mg QAM SALVADOR Administration Famotidine 20 mg 03/01/19 21:00 03/03/19 08:38 Pepcid PO 03/31/19 20:59 20 mg BID SALVADOR Administration Fluticasone Propionate 1 sprays 03/02/19 09:00 03/03/19 08:39 Flonase NA 04/01/19 08:59 1 sprays QAM SALVADOR Administration Sodium Chloride 1,000 mls @ 80 mls/hr 03/01/19 18:30 03/03/19 08:39 Nss 1000ml IV 03/31/19 18:29 80 mls/hr .[id number] SALVADOR Administration Piperacillin Sod/Tazobactam 115 mls @ 28.75 mls/hr 03/03/19 02:00 03/03/19 09:31 Sod 3.375 gm/ Dextrose IV 03/13/19 01:59 28.8 mls/hr Q8H SALVADOR Administration Protocol Ketorolac Tromethamine 10 mg 03/01/19 18:18 03/02/19 20:28 Toradol PO 03/06/19 18:17 10 mg Q6H PRN Administration uncontrolled abdominal pain [place]: Non- 1 ea 03/02/19 21:00 03/03/19 08:39 Formulary Patient's INH 04/01/19 20:59 1 ea Own Med BID SALVADOR Administration Ondansetron HCl 4 mg 03/01/19 18:13 03/01/19 20:16 Zofran IV 03/31/19 18:12 4 mg Q6H PRN Administration Nausea Polyethylene Glycol 17 gm 03/01/19 18:13 03/02/19 17:22 Miralax Powder Packet PO 03/31/19 18:12 17 gm Q2H PRN Administration Constipation Past Medical History Medical History Asthma inhaler daily/prn Cardiac murmur Diverticular disease Factor 5 Leiden mutation, heterozygous prothrombin gene mutation Gout Hiatal hernia History of kidney stones Hyperlipidemia Hypertension IBS (irritable bowel syndrome) Medullary sponge kidney (Acute) Nausea and vomiting after administration of anesthetic agent Osteoarthritis Osteoporosis Paroxysmal atrial tachycardia follows with Dr. Chatman Pernicious anemia Past Family History Family History Father Dementia Hypertension Mother Hyperlipidemia Leukemia Stroke Asthma Grandmother (Maternal) Stroke Grandfather (Maternal) Family hx of colon cancer Other No family history of adverse response to anesthesia Past Surgical History Surgical History History of colonoscopy with polypectomy History of lithotripsy History of right inguinal hernia repair History of wisdom tooth extraction Social History Smoking Status: Never smoker Hx Alcohol Use: No Hx Substance Use: No substance use type: does not use Physical Exam Vital Signs Last Vital Signs Temp 37.5 C 03/03/19 07:08 Pulse 85 03/03/19 07:08 Resp 18 03/03/19 07:08 BP 121/74 03/03/19 07:08 Pulse Ox 94 03/03/19 07:08 Testing Laboratory Results 03/03/19 07:44 03/03/19 07:44 Urine Color Yellow 03/01/19 14:47 Urine Appearance Clear (Clear) 03/01/19 14:47 Urine pH 5.0 (4.5-7.5) 03/01/19 14:47 Ur Specific [place] 1.036 (1.000-1.030) H 03/01/19 14:47 Urine Protein Negative (Negative) 03/01/19 14:47 Urine Glucose (UA) Negative (Negative) 03/01/19 14:47 Urine Ketones Negative (Negative) 03/01/19 14:47 Urine Nitrite Negative (Negative) 03/01/19 14:47 Ur Leukocyte Esterase Negative (Negative) 03/01/19 14:47 Urine WBC (Auto) 1-5 /hpf (0-5) 03/01/19 14:47 Urine RBC (Auto) 0-4 /hpf (0-4) 03/01/19 14:47 U Hyaline Cast (Auto) 1-5 /lpf (0-5) 03/01/19 14:47 U Epithel Cells (Auto) 10-20 /lpf (0-5) H 03/01/19 14:47 Urine Bacteria (Auto) Negative (Negative) 03/01/19 14:47 Electrocardiogram Date: 10/15/15 Findings: + NSR @ (88) Poor data quality, interpretation may be adversely affected Normal sinus rhythm Nonspecific ST and T wave abnormality Abnormal ECG When compared with ECG of 14-OCT-2015 12:03, No significant change Stress Test Date: 10/15/15 Conclusions: 1. Normal functional capacity. 2. Normal stress ECG response. Mi nimal chest fluttering during test not associated with arrhythmiaor ST changes. 3. Normal LV size and function. EF 55-60% 4. Normal RV size and function 5. No significant valvular disease. 6. Appropriate hyperdynamic LV response with stress without regional wall motion abnormalities. 7. Overall low risk study for adverse cardiac events. Other Testing KUB (03/03/19) IMPRESSION: Small amount of stool within the colon which appears to have improved in the interval. No evidence for bowel obstruction. Abd/ Pelvis CT (03/01/19) IMPRESSION: 1. Mild pericolonic infiltration of the mid to distal descending colon and proximal sigmoid colon which represents a nonspecific colitis. Scattered colonic diverticula however the appearance is not suggestive of acute diverticulitis. Moderate amount of stool within the colon. If not recently performed, a follow- up colonoscopy once symptoms resolve is suggested. No bowel obstruction. No mucosal lesion by CT. 2. Large bilateral renal cysts. 3. Normal appendix. 4. Small hiatal hernia.
--- NOTE | 2019-03-03 16:33 | Hospitalist Progress Note ---
Date of Service March 03, 2019 Assessment & Plan (1) Intractable abdominal pain: 68y/o with intractable abdominal pain, nausea, currently ongoing treatment for increased stool burden with concern for potential colitis/diverticulitis. Intractable Abdominal Pain: - Likely multifactorial including possible colitis and stool impaction. - Pt's abdominal pain improving both with Miralax and Zosyn antibiotics for presumed colitis. - Pt's white count stable with minimal increase to 18 from 17.6, but clinically pt feels better today. - KUB this AM shows decreased stool burden. - Continue Miralax q2h PRN and see if continued improvement of abdominal pain. - IV tylenol and PO Toradol as needed for continued pain. Pt only used Tylenol today however with advancement of diet will continue both as PRN in the event of increased symptoms. - NSS @ 80ml/Hr for hydration until able to tolerate PO intake better. Will reevaluate in the AM. Hypertension: - continue home medications. Asthma: - continue home medications. B12 deficiency anemia: - Receives monthly injections for B12 deficiency. - Stable at this time. Paroxysmal Atrial Tachycardia: - Stable on medications. - per senior military analyst Diltiazem 30mg daily PRN for symptomatic tachycardia. Diet: Clear liquid with advance diet as tolerated; NSS @ 80mL/hr until better PO intake Code: Full DVT PPX: SCDs Dispo: Med/Surg (2) Factor V Leiden, prothrombin gene mutation: (3) HTN (hypertension): (4) Asthma: (5) B12 deficiency anemia: (6) Paroxysmal atrial tachycardia: Supervising Physician Co-Signing Physician Notes Patient seen and examined PGY-1 Dr. Gillette. Agree with history, exam findings, assessment and plan of care as outlined. Feeling better--abdominal pain is improved, although wondering why she has intermittent fevers that seem to resolve rather quickly. Having some loose stool, but this is improved. Vital signs and nursing notes reviewed. Abdomen is soft, mild tenderness in the LLQ without rebound. 1. LLQ pain, mild diverticulitis vs stercoral colitis. Continue with zosyn. Monitor leukocytosis and fevers. Advanced diet to clears. ADAT. 2. Hypothyroidism. TSH a bit low. May consider lowering synthroid dosage. Other chronic issues are stable, home medications continued. Dispo: pending clinical improvement. Subjective Pt without acute events overnight. With less abdominal pain today. Still some abdominal pain intermittent resolved with tylenol. Some nausea with breakfast and lunch on clear liquid diet. No fevers or chills. Not "running to the bathroom" as often. Reports less blood in her stools. Able to move around without assistance more today. No vomiting. No SOB, CP. Review of Systems Constitutional: no fever, no chills and no malaise Respiratory: no cough and no dyspnea Cardiovascular: no chest pain, no palpitations and no edema Gastrointestinal: + abdominal pain (as per HPI), + diarrhea/loose stools (as per HPI) and + blood in stools (as per HPI); no constipation Genitourinary: no dysuria and no hematuria Physical Exam Constitutional: WD/WN, vitals as above Respiratory: normal respiratory effort, lungs clear to auscultation Cardiovascular: RRR, no murmur, no edema Gastrointestinal (Abdomen): Inspection/Auscultation: abdomen normal to inspection and normal bowel sounds Percussion/Palpation: + abdomen tender (LLQ however pt reports less than yesterday) and abdomen soft; no guarding Skin: no rashes, warm and dry Psychiatric: A+Ox3, euthymic affect Results & Data Vital Signs (Past 12 Hours) Vital Signs Temp Pulse Resp BP BP Pulse Ox 03/03/19 15:42 36.8 C 80 18 108/70 93 03/03/19 07:08 37.5 C 85 18 121/74 94 Resident Activity Tracking Resident Involvement: Resident Care Provided Care Provided: Adult Hospital Medicine
[2019-03-03] MEDS: ASPIRIN 81 MG ECTAB PO SCH (20:18)
[2019-03-03] MEDS: EZETIMIBE 10 MG TABLET PO SCH (20:18)
[2019-03-03] MEDS: CETIRIZINE HCL 10 MG TABLET PO SCH (20:19)
[2019-03-04] MEDS: SODIUM CHLORIDE 0.9% 1000ML 1,000 ML IV SCH ×2 (00:23→12:18)
[2019-03-04] MEDS: PIPERACILLIN/TAZOBACTAM 3.375 GM in DEXTROSE 5% 100 ML IV SCH ×2 (02:28→09:12)
[2019-03-04 05:11] LABS: Basophils # (auto) 0.02 K/uL (0-0.2); Basophils % (auto) 0.2 %; Eosinophils # (auto) 0.22 K/uL (0-0.5); Eosinophils % (auto) 2.1 %; Hematocrit (blood only) 32.5 % (37-47); Hemoglobin 10.6 g/dL (12.0-16.0); Immature Granulocytes # (auto) 0.04 K/uL (0.00-0.02); Immature Granulocytes % (auto) 0.4 %; Lymphocytes # (auto) 1.61 K/uL (1.2-3.4); Lymphocytes % (auto) 15.1 %; Mean Corpuscular Hemoglobin 31.5 pg (25-34); Mean Corpuscular Hgb Conc 32.6 g/dL (32-36); Mean Corpuscular Volume 96.4 fL (80-100); Mean Platelet Volume 10.1 fL (7.4-10.4); Monocytes # (auto) 0.85 K/uL (0.11-0.59); Neutrophils # (auto) 7.91 K/uL (1.4-6.5); Neutrophils % (auto) 74.2 %; Platelet Count 193 K/uL (130-400); RDW Coefficient of Variation 14.1 % (11.5-14.5); RDW Standard Deviation 50.3 fL (36.4-46.3); Red Blood Count 3.37 M/uL (4.2-5.4); White Blood Count 10.65 K/uL (4.8-10.8)
[2019-03-04] MEDS: POLYETHYLENE (MIRALAX) 17 GM PACK PO PRN (05:17)
[2019-03-04 05:37] LABS: BUN Creatinine Ratio 12.3 (10-20); Calcium 7.9 mg/dl (8.5-10.1); Creatinine Clr Calc Pharmacy 81.3 ml/min; Est GFR (African American) 106.1; Est GFR (Non-African American) 91.5; Potassium 3.2 mmol/L (3.5-5.1)
[2019-03-04] MEDS ORDERED: POTASSIUM CHLORIDE 20 MEQ TABCR PO STA (07:23)
[2019-03-04] MEDS ORDERED: POLYETHYLENE (MIRALAX) 17 GM PACK PO PRN (08:42)
[2019-03-04] MEDS: CALCIUM CARBONATE 500 MG CHEWABLE TAB PO SCH (09:06)
[2019-03-04] MEDS: ENALAPRIL MALEATE 10 MG TAB PO SCH (09:07)
[2019-03-04] MEDS: FLUTICASONE PROPIONATE NA SPR 16 GM BTL SCH (09:08)
[2019-03-04] MEDS: FAMOTIDINE 20 MG TAB PO SCH (09:08)
[2019-03-04] MEDS: ALVESCO INH SCH (09:09)
--- NOTE | 2019-03-04 09:16 | Discharge Summary ---
Date of Service March 04, 2019 Admission HPI Per Admitting Provider Ms. Devine is a 68y/o Female, who presented to the emergency room following having intense sharp abdominal pain, with nausea and vomiting after attempting to go to the bathroom early this morning. Leading up to this had no changes in her bowel movements over the last several days, but this morning just felt an increased sense that she needed to go; upon sitting and starting to strain to go she had the intense sharp pain directly below her belly button that immediately made her feel nauseated. On arrival of EMS had one episode of emesis that was red in color but she believes this was due to what she ate earlier in the day. Since then her abdominal pain has migrated more to her left side, and has decreased in overall intensity Admission Exam Per Admitting Provider Constitutional: WD/WN, vitals as above Eyes: PERRL, conjunctivae normal, anicteric sclerae ENMT: external ear and nose normal, oropharynx normal Respiratory: normal respiratory effort, lungs clear to auscultation Cardiovascular: Rate/Rhythm: regular rate and regular rhythm Heart Sounds: normal S1 and normal S2; no gallop, no murmur and no cardiac rub Gastrointestinal (Abdomen): Inspection/Auscultation: normal bowel sounds Percussion/Palpation: + abdomen tender (Left quadrants) and abdomen soft; no guarding, abdomen not rigid and no hepatosplenomegaly Skin: no rashes, warm and dry Lymphatic: no cervical or axillary lymphadenopathy Principal Diagnosis Infectious colitis vs. stool impaction Discharge Data Allergies Allergy/AdvReac Type Severity Reaction Status Date / Time apple Allergy Severe mouth/lips Verified 03/01/19 14:00 tingling iron Allergy Severe IV IRON Verified 03/01/19 14:00 SUCROSE-WEAKNESS,LT HEADED,CHEST HEAVINESS, HOT SENS orange Allergy Severe mouth and Verified 03/01/19 14:00 lips tingle/itching peanut Allergy Severe ANAPHYLAXIS Verified 03/01/19 14:00 pistachio nut Allergy Severe "start of Verified 03/01/19 14:00 anaphylaxis" shellfish derived Allergy Severe ANAPHYLAXIS Verified 03/01/19 14:00 Sulfa (Sulfonamide Allergy Severe TACHYCARDIA,? Verified 03/01/19 14:00 Antibiotics) DRUG INTERACTION Venofer Allergy Unknown IV IRON Verified 05/18/17 10:55 SUCROSE-WEAKNESS,LT HEADED,CHEST HEAVINESS, HOT SENS Insect Extract Allergy Severe ANAPHYLAXIS Uncoded 03/01/19 14:00 Consultations 03/01/19 16:03 ED Decision to Admit Stat Ordered Studies 03/01/19 13:18 CT abd pelvis IV con only Stat Hospital Course (1) Intractable abdominal pain: 68y/o with intractable abdominal pain, nausea, treated for stool impaction and nonspecific colitis. Intractable Abdominal Pain: - Likely multifactorial including possible colitis and stool impaction. - Pt's abdominal pain and white count improving on PRN Miralax and Zosyn for presumed colitis. No longer with any blood in her stools. Stools are loose after receiving multiple doses of Miralax. - Pt's WBC 18 -> 10.6 this admission. - KUB yesterday showed decreased stool burden as compared to CT Abdomen on admission which showed nonspecific colitis and moderate amount of stool. - Pt tolerating PO intake well, no nausea or vomiting. Will d/c with Augmentin x5 days and Miralax PRN constipation. Also sent with diverticulosis diet recommendations. - Pt to f/u with PCP and GI after discharge. For colonoscopy 6-8 weeks following hospitalization (had screening colonoscopy for Mar 14 but will be pushed back so colon is not inflamed). - Pt will call PCP if increase in abdominal pain, fevers, chills. Hypertension: - continue home medications. Asthma: - continue home medications. B12 deficiency anemia: - Receives monthly injections for B12 deficiency. - Stable at this time. Paroxysmal Atrial Tachycardia: - Stable on medications. - Diltiazem 30mg daily PRN for symptomatic tachycardia. (2) Factor V Leiden, prothrombin gene mutation: (3) HTN (hypertension): (4) Asthma: (5) B12 deficiency anemia: (6) Paroxysmal atrial tachycardia: Total Time Total Time Spent Total Time Spent (In Minutes): see attending attestation. Discharge Plan Discharge Items Patient Disposition: Home - Self-Care Reason For Visit: ABDOMINAL PAIN Discharge Diagnosis: Inflammation of the colon Activity: Resume your previous activity Non-emergency contact: Primary Care Provider and Separations Scientist Call non-emergency contact if: you have any medication questions, your symptoms worsen and your temperature is above 101 Follow-up/Referrals: Jesus Alston DO [Physician] - (f/u colitis inpatient. Colonoscopy already rescheduled.) Josh Miner MD [Primary Care Provider] - 03/13/19 10:00 am (Please, follow up at Dr. Miner's office with his associate, Marina Flaherty PA-C, on March 13 at 10:00 am. *If you need to change this appointment, call their office at [phone].) Diet: Low Fiber Addtl Attending Provider Instructions: You were admitted to the hospital with abdominal pain and found to have a lot of stool in your system, as well as some inflammation of the colon which could suggest an infection. With stool softeners, fluids, and antibiotics you began to improve and we felt safe to discharge you home. Please find below your instructions for your follow ups and antibiotics to take at home. Diverticulosis People with diverticulosis who do not have symptoms do not require treatment. However, most clinicians recommend increasing fiber in the diet, which can help to bulk the stools and possibly prevent the development of new diverticula, diverticulitis, or diverticular bleeding. Fiber is not proven to prevent these conditions in all patients but may help to control recurrent episodes in some. Increase fiber Fruits and vegetables are a good source of fiber. Seeds and nuts Patients with diverticular disease have historically been advised to avoid whole pieces of fiber (such as seeds, corn, and nuts) because of concern that these foods could cause an episode of diverticulitis. However, be sure to discuss this with your well point pumping supervisor. Medications - We will send you home with a prescription for Augmentin. You take this antibiotic by mouth twice a day for 5 days from the [facility] on [address] [place]. If you begin to develop shaking fevers or chills, or the abdominal pain gets significantly worse despite medications, call your primary care doctor. We would also suggest that you continue a stool softener as needed to keep your stools regular and soft. Follow ups - Following discharge from the hospital it is important that you see your primary care doctor for a follow up of hospital visit. It is also important that you see your GI doctor for follow up. Pending Studies at Discharge: No Stand-Alone Forms: Call Back Authorization, My [facility] [employer], Opioid Pain Management, Work/School Release (Inpt), Smoking Cessation Medications and DC Order Prescriptions: New amoxicillin-pot clavulanate [Augmentin] 875-125 mg tablet 1 tab PO BID 5 Days Qty: 10 RF: 0 Continued epinephrine [EpiPen] 0.3 mg/0.3 mL auto-injector 0.3 mg IM Q20M PRN (Reason: anaphylaxis) Qty: 2 RF: 5 famotidine 20 mg tablet 20 mg PO BID 90 Days Qty: 180 RF: 3 [place] 160 mcg/actuation HFA aerosol inhaler 1 puffs INH BID RF: 0 calcium carbonate [Antacid (calcium carbonate)] 200 mg calcium (500 mg) tablet,chewable 200 mg PO BID Qty: 60 RF: 0 cholecalciferol (vitamin D3) 1,000 unit capsule 1,000 units PO DAILY Qty: 30 RF: 0 diltiazem HCl 30 mg tablet 30 mg PO DAILY PRN (Reason: palpitations) Qty: 90 RF: 0 ezetimibe 10 mg tablet 10 mg PO HS Qty: 90 RF: 3 albuterol sulfate [ProAir HFA] 90 mcg/actuation HFA aerosol inhaler 1 puffs INH Q6H PRN (Reason: shortness of breath or wheezing) Qty: 8.5 RF: 0 cyanocobalamin (vitamin B-12) 1,000 mcg/mL solution 1,000 mcg IM MONTHLY RF: 0 quinapril 20 mg Tablet 10 mg PO QAM RF: 0 aspirin [Adult Aspirin Regimen] 81 mg tablet,delayed release (DR/EC) 81 mg PO HS RF: 0 quinapril 20 mg tablet 20 mg PO QPM RF: 0 furosemide 20 mg tablet 20 mg PO DAILY PRN (Reason: prior to flying) RF: 0 fluticasone propionate [Allergy Relief (fluticasone)] 50 mcg/actuation spray,suspension 1 sprays INTNAS QAM RF: 0 All Day Allergy (cetirizine) 10 mg capsule 10 mg PO HS RF: 0 Discharge Orders: Discharge Order (Routine); Ordered 03/04/19 Ordered By: Naila Hidalgo/Other Patient Handouts: Obstruction Sm Bowel, IBS, Diet High Fiber, Colitis Ulcerative Dc Admission Data Admit Date/Time: 03/02/19 18:25 Attending Provider: Sharita Reaves Admit Provider: Wilber Polanco Primary Care Provider: Josh Miner Other Providers: Sanjiv Pillai Other Interventions: Discharge Summary Assessment (RN) Last Done: 03/04/19 11:06 DC Date/Time DO NOT enter until pt leaves facility: 03/04/19 16:35 Supervising Physician Co-Signing Physician Notes Patient seen and examined PGY-1 Dr. Gillette. Agree with history, exam findings, assessment and plan of care as outlined. 68 year old female with hx of HTN, asthma, pAF admitted with intractable LLQ abdominal pain initially thought to be due to constipation; however, did not improve despite good bowel movements. New leukocytosis prompted initiation of zosyn for possible early diverticulitis that was not on CT vs colitis vs stercoral colitis. She was able to advance her diet and tolerated soft foods on the day of discharge. She was discharged with a rx for Augmentin. Other chronic issues were stable and home medications continued. I personally spent 35 minutes discharge planning for this patient. Resident Activity Tracking Resident Involvement: Resident Care Provided Care Provided: Adult Hospital Medicine
== END 2019-03-04 16:35 | disposition home or self-care (01) | DRG 392 ==
LOC: ED 12:47 → 3N 12:47 → SUATTDRO 03-02 18:25

== ENCOUNTER 2024-08-19 22:46 | Inpatient (IN) ==
[2024-08-19] MEDS: SODIUM CHLORIDE 0.9% 1,000 ML IV STA (23:02)
[2024-08-19] MEDS: fentaNYL citrate PF 100 MCG/2 ML VIAL IV STA ×2 (23:07→23:41)
--- NOTE | 2024-08-19 23:10 | Emergency Department Note ---
Impression & Plan Abdominal pain, lower, Colitis, Nausea, Acute UTI ED Provider Note Provider: Wojciech Osorio MD CHIEF COMPLAINT: HISTORY OF PRESENT ILLNESS: Patient is a 74-year-old female past medical history of kidney stones, diverticulitis, IBS, paroxysmal atrial tachycardia, pernicious anemia, hypertension presenting here today complaining of fairly sudden onset pain around 9 PM tonight in the lower abdomen. States that last day or 2 is noted and being a little bit more bloated and full particular in lower abdomen. Has had nausea and multiple this is nonbloody vomit. Has been her bowels over the last day or so denies significant constipation. No real upper abdominal pain and no back pain reported. No trauma. Was a little bit weak and near syncopal but did not syncopized or fall. Family did assist her some as she was weak after throwing up and was little bit clammy. Received Zofran en route with EMS and nausea has more or less resolved at this time. Still feeling off. No suspect food intake. Had macaroni and cheese tonight but something she normally has. Patient does have multiple food allergies. Denies prior abdominal surgeries. Patient evidently has had some on and off upper extremity and chest rashes over the last month as well. Did see her PCP office today. Follows with Dr. Alston of GI. PAST MEDICAL HISTORY: As noted above MEDICATIONS: Reviewed home medications SOCIAL HISTORY: Lives at home with PHYSICAL EXAM: GENERAL: alert and oriented on stretcher daughter at bedside appears somewhat fatigued Head: normocephalic and atraumatic EYES: No injection, discharge or icterus. NECK: Trachea midline. Good range of motion ENT: Mucous membranes pink and moist. LUNGS: Airway patent. No retractions. Breath sounds clear HEART: Regular rate and rhythm. ABDOMEN: Soft no guarding maybe minimally distended with mid to right lower quadrant tenderness. No Sampson sign or left-sided abdominal tenderness. No flank tenderness. SKIN: Acyanotic, warm, dry, without rashes EXTREMITIES: Without swelling, tenderness or deformity NEUROLOGICAL: No focal deficits moving all extremities. No aphasia. No facial droop or slurred speech.Ambulatory. EK bpm normal sinus rhythm. T wave flattening without acute ST segment elevation and a QTc of 455. No PVC or PAC noted. CONTINUOUS CARDIAC MONITORING: was ordered and showed a heart rate of 60s to 70s bpm in normal sinus rhythm Patient's laboratory studies and imaging reviewed. Differential includes Appendicitis, infections, diverticulitis, UTI, obstruction, mesenteric ischemia, aortic pathology, inflammatory bowel disease, renal colic, PUD, pancreatitis, biliary pathology, hernia, volvulus, constipation, as well as other pathologies. IMPRESSION/MEDICAL DECISION MAKING: Patient history of Schatzki ring, pernicious anemia, anal hernia but today with more significant mid to right lower quadrant abdominal discomfort over the last 2 hours with associated nausea and vomiting. Weak from this but no actual syncope and no trauma. No other sick contacts reported. Denies chest pain or shortness of breath. Nausea improved with Zofran for EMS. Given a bit of fentanyl here for pain. Will obtain blood work and CT imaging. Patient with allergy profile and thus a noncontrast abdominal CT ordered. No significant back pain. No numbness or tingling lower extremities reported I doubt spinal pathology such as cauda equina or infection here. EKG troponin sent for completeness without acute findings. Blood work without anemia but a leukocytosis 17 is noted. No severe electrolyte abnormality signs of renal dysfunction. No transaminitis concerning for hepatitis or findings consistent with pancreatitis. CT of the abdomen pelvis per radiology without evidence of obstruction, pneumoperitoneum, free fluid, abscess with circumferential thickening of the left colon concerning for colitis with diverticulosis sigmoid colon but no clear acute diverticulitis. Heel area also noted. Patient not having hiatal symptoms. Does of a history of some colitis (we will treat like diverticulitis) but also with urine findings will cover with a dose of Zosyn and given her significant pain in discussion with patient and her daughter will contact the hospitalist for further observation. Patient is requiring some slight oxygen supplementation related to her fentanyl pain medicine usage. DIAGNOSIS: Lower abdominal pain/colitis, UTI, nausea and vomiting DISPOSITION: Hospitalist will evaluate Patient was agreeable with this plan. Past Med/Surg History Problem List (Updated 08/20/24 @ 04:57 by Background Daemon) Diverticulitis history of, previous hospitalization [facility] ? 2019 Intractable abdominal pain Acute UTI (Acute) Nausea (Acute) Colitis (Acute) Abdominal pain, lower (Acute) Anaphylaxis due to food Mild persistent asthma Oral allergy syndrome Encounter for pre-operative examination Prediabetes Myalgia due to statin Kidney cysts Kidney stones Colitis (Acute) IBS (irritable bowel syndrome) Pernicious anemia Paroxysmal atrial tachycardia follows with Dr. Chatman Irritable bowel disease Edema Vitamin D deficiency (Chronic) Hyperparathyroidism Esophageal reflux B12 deficiency anemia Osteoporosis Arthralgia of multiple sites Asthma (Chronic) HTN (hypertension) (Chronic) Heterozygous factor V Leiden mutation (Chronic) Factor V Leiden, prothrombin gene mutation (Chronic) Medical History Oral allergy syndrome Prediabetes Paroxysmal atrial tachycardia Irritable bowel syndrome (IBS) History of gout Arthralgia of multiple sites Vitamin B12 deficiency anemia Vasospasm Diverticulitis Difficult intravenous access Venom-induced anaphylaxis Allergic rhinitis Tubular adenoma of rectum H/O bone density study Mass of right breast on mammogram Nausea and vomiting after administration of anesthetic agent Osteoporosis Osteoarthritis Hiatal hernia Diverticular disease Factor 5 Leiden mutation, heterozygous Hyperlipidemia Hypertension Cardiac murmur Asthma History of nephrolithiasis Antral gastritis Anaphylaxis due to shellfish Anaphylaxis due to peanuts 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 kidney Surgical History History of esophagogastroduodenoscopy (EGD) History of right inguinal hernia repair History of colonoscopy with polypectomy History of wisdom tooth extraction History of lithotripsy Family History Father Dementia Hypertension Mother Hyperlipidemia Leukemia Stroke Asthma Grandmother (Maternal) Stroke Grandfather (Maternal) Family hx of colon cancer Grandfather (Paternal) Myocardial infarction Other No family history of adverse response to anesthesia Denies family history of Ovarian cancer Prostate cancer Breast cancer Colorectal cancer Social History Smoking Status: Never smoker Tobacco Type: Cigarettes Age Started Using Tobacco: 17; Age Quit Using Tobacco: 38; packs per day: 0.25; Cigarettes Per Day: one pack lasted a week; Second Hand Exposure: No; Do You Dip or Chew Tobacco: No; Hx Alcohol Use: No Hx Substance Use: No Preferred Language: Peruvian Communication Ability: Effective Visual Impairment: No Limitations Hearing Ability: Normal Spotlight Operator Required: Yes Beliefs That Will Affect Care: None marital status: Current Living Situation: Spouse current occupational status: retired Other Information That Helps Us Care for You: No Feels Safe at Home: Yes Safety Concerns: Feels Safe At This Time Childhood Exposure to Second-Hand Smoke: No (parents) Dental Care, Regularly: Yes Physical Activity Frequency: 3-4 Times per Week Seatbelt Use: always Sunscreen Use: Yes Assistive Devices: Glasses and Hospital Bed Allergies Allergies Allergy/AdvReac Type Severity Reaction Status Date / Time apple Allergy Severe mouth/lips Verified 08/19/24 15:55 tingling iron Allergy Severe IV IRON Verified 08/19/24 15:55 SUCROSE-WEAKNESS,LT HEADED,CHEST HEAVINESS, HOT SENS orange Allergy Severe mouth and Verified 08/19/24 15:55 lips tingle/itching peanut Allergy Severe ANAPHYLAXIS Verified 08/19/24 15:55 pistachio nut Allergy Severe "start of Verified 08/19/24 15:55 anaphylaxis" shellfish derived Allergy Severe ANAPHYLAXIS Verified 08/19/24 15:55 Sulfa (Sulfonamide Allergy Severe TACHYCARDIA,? Verified 08/19/24 15:55 Antibiotics) DRUG INTERACTION Venofer Allergy Unknown IV IRON Verified 05/18/17 10:55 SUCROSE-WEAKNESS,LT HEADED,CHEST HEAVINESS, HOT SENS Insect Extract Allergy Severe ANAPHYLAXIS Uncoded 08/19/24 15:55 Home Meds Home Medications Medication Instructions Recorded Confirmed aspirin 81 mg tablet,delayed 81 mg PO HS 02/28/19 08/19/24 release (Adult Aspirin Regimen) cetirizine 10 mg capsule (All Day 10 mg PO HS 02/28/19 08/19/24 Allergy (cetirizine)) furosemide 20 mg tablet 20 mg PO DAILY PRN prior to flying 02/28/19 08/19/24 quinapril 20 mg tablet 10 mg PO QAM 08/12/20 08/19/24 cholecalciferol (vitamin D3) 25 1,000 unit PO BID 09/09/21 08/19/24 mcg (1,000 unit) capsule diltiazem HCl 30 mg tablet 30 mg PO DAILY PRN palpitations 10/18/22 08/19/24 evolocumab 140 mg/mL subcutaneous 140 mg subcut .EVERY 2 WEEKS 11/08/23 08/19/24 pen injector (Khurram Henderson) acetaminophen 500 mg tablet 500 mg PO Q6H 02/14/24 08/19/24 (Tylenol Extra Strength) fluticasone propionate 50 1 spray intranasal QAM 03/27/24 08/19/24 mcg/actuation nasal spray,suspension ciclesonide 160 mcg/actuation 160 mcg inhalation QAM 05/08/24 08/19/24 aerosol inhaler (Alvesco) Previous Rx's Medication Instructions Recorded calcium carbonate (Antacid 200 mg PO BID #60 tabs 08/19/18 (calcium carbonate)) cyanocobalamin (vitamin B-12) 1,000 mcg IM MONTHLY #1 mL 11/05/19 1,000 mcg/mL injection solution syringe with needle 3 mL 25 gauge #1 ea 11/05/19 x 1" (BD Luer-Richard Syringe) polyethylene glycol 3350 17 17 g PO DAILY #238 grams 01/13/21 gram/dose oral powder (Miralax) Ventolin HFA 90 mcg/actuation 2 puff inhalation Q4H PRN 04/02/23 aerosol inhaler (albuterol sulfate) shortness of breath or wheezing #24 grams famotidine 20 mg tablet 20 mg PO BID 3 months #180 tabs 12/14/23 epinephrine 0.3 mg/0.3 mL 0.3 mg (0.3 mL) IM .COMPLEX PRN 05/28/24 injection, auto-injector anaphylaxis #2 ea triamcinolone acetonide 0.1 % 1 applic topical BID #80 grams 07/07/24 topical cream Results & Data (ED) Vital Signs Vital Signs - 24 hr 08/19/24 22:51 08/19/24 22:54 08/19/24 22:58 Temperature 37.5 C Temperature Source Oral Pulse Rate 70 66 Pulse Rate from SpO2 Sensor Pulse Rhythm Regular Regular Respiratory Rate 20 22 Respiratory Effort / Characteristics Non-Labored Spontaneous Respiratory Depth Normal Blood Pressure 190/86 H Blood Pressure Mean 120 Blood Pressure Position Sitting Pulse Oximetry 97 96 Oxygen Delivery Method Room Air Room Air Room Air Sepsis Recent Fever Within 48 Hours No Sepsis New/Unexplained Change in Mental Status N/A Sepsis Action Taken by Nursing No Action Required 08/19/24 23:00 08/19/24 23:12 08/19/24 23:14 Temperature Temperature Source Pulse Rate 65 72 69 Pulse Rate from SpO2 Sensor 65 71 Pulse Rhythm Respiratory Rate 22 16 Respiratory Effort / Characteristics Respiratory Depth Blood Pressure Blood Pressure Mean Blood Pressure Position Pulse Oximetry 95 96 Oxygen Delivery Method Sepsis Recent Fever Within 48 Hours Sepsis New/Unexplained Change in Mental Status Sepsis Action Taken by Nursing 08/19/24 23:37 08/19/24 23:37 08/19/24 23:39 Temperature Temperature Source Pulse Rate 68 Pulse Rate from SpO2 Sensor 70 Pulse Rhythm Respiratory Rate 17 Respiratory Effort / Characteristics Respiratory Depth Blood Pressure 152/74 H 152/74 H Blood Pressure Mean 123 123 Blood Pressure Position Pulse Oximetry 93 Oxygen Delivery Method Sepsis Recent Fever Within 48 Hours Sepsis New/Unexplained Change in Mental Status Sepsis Action Taken by Nursing 08/19/24 23:42 08/19/24 23:54 08/20/24 00:00 Temperature Temperature Source Pulse Rate 70 71 71 Pulse Rate from SpO2 Sensor 69 70 71 Pulse Rhythm Respiratory Rate 20 21 16 Respiratory Effort / Characteristics Respiratory Depth Blood Pressure Blood Pressure Mean Blood Pressure Position Pulse Oximetry 92 94 93 Oxygen Delivery Method Sepsis Recent Fever Within 48 Hours Sepsis New/Unexplained Change in Mental Status Sepsis Action Taken by Nursing 08/20/24 00:00 08/20/24 00:15 08/20/24 00:27 Temperature Temperature Source Pulse Rate 70 67 Pulse Rate from SpO2 Sensor 71 68 Pulse Rhythm Respiratory Rate 18 20 Respiratory Effort / Characteristics Respiratory Depth Blood Pressure 153/69 H Blood Pressure Mean 84 Blood Pressure Position Pulse Oximetry 90 94 Oxygen Delivery Method Sepsis Recent Fever Within 48 Hours Sepsis New/Unexplained Change in Mental Status Sepsis Action Taken by Nursing 08/20/24 01:00 08/20/24 01:00 08/20/24 01:03 Temperature Temperature Source Pulse Rate 77 Pulse Rate from SpO2 Sensor 74 Pulse Rhythm Respiratory Rate 24 Respiratory Effort / Characteristics Respiratory Depth Blood Pressure 125/100 125/100 Blood Pressure Mean 110 110 Blood Pressure Position Pulse Oximetry 94 Oxygen Delivery Method Sepsis Recent Fever Within 48 Hours Sepsis New/Unexplained Change in Mental Status Sepsis Action Taken by Nursing 08/20/24 01:12 08/20/24 01:21 08/20/24 01:27 Temperature Temperature Source Pulse Rate 79 75 82 Pulse Rate from SpO2 Sensor 80 77 83 Pulse Rhythm Respiratory Rate 19 20 23 Respiratory Effort / Characteristics Respiratory Depth Blood Pressure Blood Pressure Mean Blood Pressure Position Pulse Oximetry 95 92 94 Oxygen Delivery Method Sepsis Recent Fever Within 48 Hours Sepsis New/Unexplained Change in Mental Status Sepsis Action Taken by Nursing 08/20/24 01:31 08/20/24 01:31 08/20/24 01:36 Temperature Temperature Source Pulse Rate 88 Pulse Rate from SpO2 Sensor 88 Pulse Rhythm Respiratory Rate 18 Respiratory Effort / Characteristics Respiratory Depth Blood Pressure 148/63 H 148/63 H Blood Pressure Mean 99 99 Blood Pressure Position Pulse Oximetry Oxygen Delivery Method Sepsis Recent Fever Within 48 Hours Sepsis New/Unexplained Change in Mental Status Sepsis Action Taken by Nursing 08/20/24 03:11 Temperature Temperature Source Pulse Rate 88 Pulse Rate from SpO2 Sensor Pulse Rhythm Respiratory Rate Respiratory Effort / Characteristics Respiratory Depth Blood Pressure Blood Pressure Mean Blood Pressure Position Pulse Oximetry Oxygen Delivery Method Sepsis Recent Fever Within 48 Hours Sepsis New/Unexplained Change in Mental Status Sepsis Action Taken by Nursing Laboratory Data 08/19/24 23:00 08/19/24 23:00 Lab Results 08/19/24 08/20/24 08/20/24 Range/Units 23:00 00:17 00:40 WBC 17.24 H (4.8-10.8) K/ul RBC 3.93 L (4.20-5.40) M/uL Hgb 12.4 (12.0-16.0) g/dl Hct 38.6 (37.0-47.0) % MCV 98.2 (80.0-100.0) fL MCH 31.6 (25.0-34.0) pg MCHC 32.1 (32.0-36.0) g/dL RDW Std Deviation 45.7 (36.4-46.3) fL RDW Coeff of James 12.7 (11.5-14.5) % Plt Count 288 (130-400) K/uL MPV 10.1 (9.4-12.4) fL Immature Gran % (Auto) 0.6 % Neut % (Auto) 68.6 % Lymph % (Auto) 23.3 % [place] % (Auto) 6.1 % Eos % (Auto) 0.9 % Baso % (Auto) 0.5 % Neut # (Auto) 11.83 H (1.40-6.50) K/uL Lymph # (Auto) 4.02 H (1.20-3.40) K/uL [place] # (Auto) 1.05 H (0.11-0.59) K/uL Eos # (Auto) 0.16 (0.00-0.50) K/uL Baso # (Auto) 0.08 (0.00-0.20) K/uL Immature Gran # (Auto) 0.10 (0.01-0.20) K/uL PT Cancelled 10.9 INR Cancelled 1.0 Sodium 137 (136-145) mmol/L Potassium 4.0 (3.5-5.1) mmol/L Chloride 103 (98-107) mmol/L Carbon Dioxide 27 (21-32) mmol/L Anion Gap 7 (3-11) BUN 17 (6-23) mg/dl Creatinine 0.70 (0.6-1.2) mg/dl Est Cr Clr Drug Dosing 66.3 ml/min eGFR 90.14 BUN/Creatinine Ratio 24.3 H (10-20) Glucose 115 H (70-99(Fasting)) mg/dl Calcium 9.2 (8.6-10.3) mg/dl Total Bilirubin 0.3 (0.2-1.0) mg/dl AST 16 (13-39) U/L ALT 11 (7-52) U/L Alkaline Phosphatase 54 (34-104) U/L Troponin I High Sens 3.7 (0-14) pg/ml Total Protein 7.3 (6.0-8.3) gm/dl Albumin 4.4 (3.4-5.0) gm/dl Globulin 2.9 (2.5-4.0) gm/dl Albumin/Globulin Ratio 1.5 (0.9-2) Lipase 63 (11-82) U/L Urine Color Yellow Urine Appearance Clear (Clear) Urine pH 5.0 (4.5-7.5) Ur Specific [place] 1.022 (1.000-1.030) Urine Protein 1+ H (Negative) Urine Glucose (UA) Negative (Negative) Urine Ketones Trace H (Negative) Urine Blood Trace H (Negative) Urine Nitrite Negative (Negative) Urine Bilirubin Negative (Negative) Urine Urobilinogen Negative (Negative) Ur Leukocyte Esterase 2+ H (Negative) Urine WBC (Auto) 6-10 H (0-5) /hpf Urine RBC (Auto) 3-5 H (0-2) /hpf U Hyaline Cast (Auto) >20 H (0-2) /lpf U Epithel Cells (Auto) 3-5 H (0-2) /hpf Urine Bacteria (Auto) None Seen (None Seen) Urine Comment Administered Medications Lactated Ringer's (Lr) 1,000 mls @ 125 mls/hr IV .Q8H SALVADOR Stop: 08/21/24 03:29 Last Admin: 08/20/24 03:47 Dose: 125 mls/hr Documented By: MARY Discontinued Medications Fentanyl Citrate (Fentanyl Citrate Pf 100 Mcg/2 Ml Vial) 50 mcg IV NOW STA Stop: 08/19/24 22:59 Last Admin: 08/19/24 23:07 Dose: 50 mcg Documented By: ANSELMO Fentanyl Citrate (Fentanyl Citrate Pf 100 Mcg/2 Ml Vial) 50 mcg IV NOW STA Stop: 08/19/24 23:38 Last Admin: 08/19/24 23:41 Dose: 50 mcg Documented By: BECKY Fentanyl Citrate (Fentanyl Citrate Pf 100 Mcg/2 Ml Vial) 50 mcg IV NOW STA Stop: 08/20/24 01:26 Last Admin: 08/20/24 01:31 Dose: 50 mcg Documented By: BECKY Sodium Chloride (Nss) 1,000 mls @ 999 mls/hr IV .Q1H1M STA Stop: 08/19/24 23:58 Last Infusion: 08/20/24 02:53 Dose: Infused Documented By: Admin: 08/19/24 23:02 Dose: 999 mls/hr Documented By: ANSELMO Piperacillin Sod/Tazobactam Sod (Zosyn) 4.5 gm in 100 mls @ 200 mls/hr IV NOW ONE; Protocol Stop: 08/20/24 02:33 Last Infusion: 08/20/24 02:53 Dose: Infused Documented By: Admin: 08/20/24 02:18 Dose: 200 mls/hr Documented By: BECKY Acetaminophen (Ofirmev) 1,000 mg in 100 mls @ 400 mls/hr IV NOW STA Stop: 08/20/24 03:31 Last Infusion: 08/20/24 04:03 Dose: Infused Documented By: Admin: 08/20/24 03:47 Dose: 400 mls/hr Documented By: MARY Ondansetron HCl (Ondansetron Inj 2 Mg/Ml 2 Ml Vial) 4 mg IV NOW STA Stop: 08/20/24 01:27 Last Admin: 08/20/24 01:31 Dose: 4 mg Documented By: BECKY Imaging Data Radiologist's Impression: Abdomen/Pelvis CT 08/19/24 22:58 Exam(s): CT ABDOMEN + PELVIS Without Contrast EXAM: CT Abdomen and Pelvis Without Intravenous Contrast CLINICAL HISTORY: Reason for exam: mid to RLQ pain, n/v. TECHNIQUE: Axial computed tomography images of the abdomen and pelvis without intravenous contrast. CTDI is 20 mGy and DLP is 1036 mGy-cm. Automated exposure control was utilized for the study. A dose lowering technique was utilized adhering to the principles of ALARA. COMPARISON: 03/27/2024 FINDINGS: Lung bases: Unremarkable. No mass. No consolidation. Mediastinum: There is a hiatal hernia measuring 8.8 cm containing a portion of the stomach, slightly larger than previous. ABDOMEN: Liver: Unremarkable. Gallbladder and bile ducts: Unremarkable. No calcified stones. No ductal dilation. Pancreas: Unremarkable. No ductal dilation. Spleen: Unremarkable. No splenomegaly. Adrenals: Unremarkable. No mass. Kidneys and ureters: There are large simple cysts in both kidneys measuring up to 9.4 cm on the right and 8.5 cm on the left. No follow-up is required. No hydronephrosis or ureterolithiasis is seen involving either kidney. Stomach and bowel: Bowel loops are nondilated. There is circumferential wall thickening involving the left colon consistent with colitis. There is also diverticulosis of the sigmoid colon without evidence of acute diverticulitis. No pneumoperitoneum, free fluid, or abscess is seen. PELVIS: Appendix: No findings to suggest acute appendicitis. Bladder: Unremarkable. No stones. Reproductive: Unremarkable as visualized. ABDOMEN and PELVIS: Intraperitoneal space: See above. Bones/joints: Mild degenerative changes throughout the spine. No acute fracture or subluxation. Soft tissues: Unremarkable. Vasculature: Unremarkable. No abdominal aortic aneurysm. Lymph nodes: Unremarkable. No enlarged lymph nodes. IMPRESSION: 1. Bowel loops are nondilated. There is circumferential wall thickening involving the left colon consistent with colitis. There is also diverticulosis of the sigmoid colon without evidence of acute diverticulitis. No pneumoperitoneum, free fluid, or abscess is seen. 2. There is a hiatal hernia measuring 8.8 cm containing a portion of the stomach, slightly larger than previous. Electronically signed by: Wojciech Donnelly MD 08/20/24 01:58 AM Discharge Plan Visit Data Chief Complaint: Abdominal Pain Stated Complaint: AB PAIN, NAUSA, VOMITING ED Provider: Wojciech Osorio Discharge Problem: Abdominal pain, lower, Colitis, Nausea, Acute UTI Patient Disposition: Admitted As Inpatient Condition: Fair Discharge Instructions Interventions: ED Discharge Assessment Last Done: 08/20/24 04:40
[2024-08-19 23:21] LABS: Basophils # (auto) 0.08 K/uL (0.00-0.20); Basophils % (auto) 0.5 %; Eosinophils # (auto) 0.16 K/uL (0.00-0.50); Eosinophils % (auto) 0.9 %; Hematocrit (blood only) 38.6 % (37.0-47.0); Hemoglobin 12.4 g/dl (12.0-16.0); Immature Granulocytes % (auto) 0.6 %; Lymphocytes # (auto) 4.02 K/uL (1.20-3.40); Lymphocytes % (auto) 23.3 %; Mean Corpuscular Hemoglobin 31.6 pg (25.0-34.0); Mean Corpuscular Hgb Conc 32.1 g/dL (32.0-36.0); Mean Corpuscular Volume 98.2 fL (80.0-100.0); Mean Platelet Volume 10.1 fL (9.4-12.4); Monocytes # (auto) 1.05 K/uL (0.11-0.59); Monocytes % (auto) 6.1 %; Neutrophils # (auto) 11.83 K/uL (1.40-6.50); Neutrophils % (auto) 68.6 %; Platelet Count 288 K/uL (130-400); RDW Coefficient of Variation 12.7 % (11.5-14.5); RDW Standard Deviation 45.7 fL (36.4-46.3); Red Blood Count 3.93 M/uL (4.20-5.40); White Blood Count 17.24 K/ul (4.8-10.8)
[2024-08-19 23:39] LABS: Albumin Globulin Ratio 1.5 (0.9-2); Albumin Level 4.4 gm/dl (3.4-5.0); BUN Creatinine Ratio 24.3 (10-20); Bilirubin,Total 0.3 mg/dl (0.2-1.0); Calcium 9.2 mg/dl (8.6-10.3); Creatinine Clr Calc Pharmacy 66.3 ml/min; Globulin 2.9 gm/dl (2.5-4.0); Total Protein 7.3 gm/dl (6.0-8.3)
[2024-08-19 23:45] LABS: Troponin I High Sensitivity 3.7 pg/ml (0-14)
[2024-08-20 00:55] LABS: Prothrombin Time 10.9 Seconds (9.0-12.0)
[2024-08-20] MEDS: fentaNYL citrate PF 100 MCG/2 ML VIAL IV STA (01:31)
[2024-08-20] MEDS: ONDANSETRON INJ 2 MG/ML 2 ML VIAL IV STA (01:31)
[2024-08-20 01:43] LABS: Appearance Urine Clear (Clear); Bacteria Urine Automated None Seen (None Seen); Bilirubin Urine Negative (Negative); Blood Urine Trace (Negative); Cast Urine Automated >20 /lpf (0-2); Color Urine Yellow; Glucose Urine UA Negative (Negative); Ketones Urine Trace (Negative); Leukocyte Esterase Urine 2+ (Negative); Nitrite Urine Negative (Negative); Protein Urine 1+ (Negative); Specific Gravity Urine 1.022 (1.000-1.030); Urobilinogen Urine Negative (Negative)
--- NOTE | 2024-08-20 01:58 | CT Scan Report ---
Exam(s): CT ABDOMEN + PELVIS Without Contrast EXAM: CT Abdomen and Pelvis Without Intravenous Contrast CLINICAL HISTORY: Reason for exam: mid to RLQ pain, n/v. TECHNIQUE: Axial computed tomography images of the abdomen and pelvis without intravenous contrast. CTDI is 20 mGy and DLP is 1036 mGy-cm. Automated exposure control was utilized for the study. A dose lowering technique was utilized adhering to the principles of ALARA. COMPARISON: 03/27/2024 FINDINGS: Lung bases: Unremarkable. No mass. No consolidation. Mediastinum: There is a hiatal hernia measuring 8.8 cm containing a portion of the stomach, slightly larger than previous. ABDOMEN: Liver: Unremarkable. Gallbladder and bile ducts: Unremarkable. No calcified stones. No ductal dilation. Pancreas: Unremarkable. No ductal dilation. Spleen: Unremarkable. No splenomegaly. Adrenals: Unremarkable. No mass. Kidneys and ureters: There are large simple cysts in both kidneys measuring up to 9.4 cm on the right and 8.5 cm on the left. No follow-up is required. No hydronephrosis or ureterolithiasis is seen involving either kidney. Stomach and bowel: Bowel loops are nondilated. There is circumferential wall thickening involving the left colon consistent with colitis. There is also diverticulosis of the sigmoid colon without evidence of acute diverticulitis. No pneumoperitoneum, free fluid, or abscess is seen. PELVIS: Appendix: No findings to suggest acute appendicitis. Bladder: Unremarkable. No stones. Reproductive: Unremarkable as visualized. ABDOMEN and PELVIS: Intraperitoneal space: See above. Bones/joints: Mild degenerative changes throughout the spine. No acute fracture or subluxation. Soft tissues: Unremarkable. Vasculature: Unremarkable. No abdominal aortic aneurysm. Lymph nodes: Unremarkable. No enlarged lymph nodes. IMPRESSION: 1. Bowel loops are nondilated. There is circumferential wall thickening involving the left colon consistent with colitis. There is also diverticulosis of the sigmoid colon without evidence of acute diverticulitis. No pneumoperitoneum, free fluid, or abscess is seen. 2. There is a hiatal hernia measuring 8.8 cm containing a portion of the stomach, slightly larger than previous. Electronically signed by: Wojciech Donnelly MD 08/20/24 01:58 AM
[2024-08-20] MEDS: PIPERACILLIN/TAZOBACTAM 4.5 GM/100 ML BAG IV ONE (02:18)
--- NOTE | 2024-08-20 03:22 | History & Physical Report ---
Date of Service August 20, 2024 Assessment & Plan (1) Diverticulitis: (2) Colitis: (3) Intractable abdominal pain: (4) Nausea: Plan Patient is a 74 female with past medical history of Diverticulitis, factor V Leiden, asthma, hypertension, hyperlipidemia. patient was seen by her PCP today for her wellness visit was feeling perfectly fine, she went home and had dinner when she went to the bathroom after she developed significant mid lower abdominal pain as well as nausea, vomiting, and weakness. She vomited approximately 3-4 times and then her called EMS. AP CT revealed colitis without diverticulitis however patient has required hospitalizations in the past for similar findings that were treated as diverticulitis. Will admit for diverticulitis/colitis and intractable pain. #Diverticulitis/colitis/intractable abdominal pain - leukocytosis, WBC 17.24. AP CT revealed colitis, diverticulosis without acute diverticulitis. Patient with similar symptoms and CT findings previously treated as diverticulitis and well-tolerated. Patient with recent EGD and colonoscopy Mayolonoscopy revealed polyp, multiple small mouth diverticuli, internal hemorrhoids. EGD revealed nonobstructing Schatzki in distal esophagus (dilated), small hiatal hernia, mild localized inflammation of gastric antrum. N.p.o. IVF resuscitation with LR at 125 ml/hour Hold nonessential p.o. medications Stool cultures ordered given symptoms began directly after dinner Pain control with scheduled IV Tylenol, morphine 2/4 Mg IV as needed for breakthrough pain Zofran as needed - Continue Zosyn - trend cbc #hypoxia secondary to opioids Wean oxygen as tolerated Incentive spirometry #Allergiescontinue home inhalers #HTNcontinue quinapril VTE ppx: Lovenox, history of factor V Leiden Dispo: MedSurg with continuous pulse ox Admission and Anticipated Discharge Date Admission Date: 08/20/24 History of Present Illness Chief Complaint: abdominal pain Primary Care Provider: Josh Miner MD Patient is a 74 female with past medical history of Diverticulitis, factor V Leiden, asthma, hypertension, hyperlipidemia. patient was seen by her PCP today for her wellness visit was feeling perfectly fine, she went home and had dinner when she went to the bathroom after she developed significant mid lower abdominal pain as well as nausea, vomiting, and weakness. She vomited approximately 3-4 times and then her called EMS. AP CT revealed colitis without diverticulitis however patient has required hospitalizations in the past for similar findings that were treated as diverticulitis. Will admit for diverticulitis/colitis and intractable pain. Patient seen at bedside. She is very pleasant. She stated she was feeling perfectly fine until after dinner when she developed significant abdominal pain that comes and goes. Pain is currently 7/10 after receiving 150 mcg of fentanyl in the ED. Her nausea is well-controlled. Patient stated she felt so weak during these episodes and that she was going to pass out so her called EMS. She stated when she has had kidney stones in the past that felt much different than this and when she had diverticulitis in 2019 requiring admission, is more so on the left side rather than in the middle. She denies any current dizziness/lightheadedness, chest pain, shortness of breath, dysuria, hematuria, hematemesis, diarrhea, constipation. She has not had a bowel movement yet patient states she was a former smoker, quitting in the . She does not drink alcohol. She does not use oxygen at baseline, currently on 5lNC after receiving fentanyl in ED. She did take her home medications today. She wishes to be full code. Allergies Allergy/AdvReac Type Severity Reaction Status Date / Time apple Allergy Severe mouth/lips Verified 08/19/24 15:55 tingling iron Allergy Severe IV IRON Verified 08/19/24 15:55 SUCROSE-WEAKNESS,LT HEADED,CHEST HEAVINESS, HOT SENS orange Allergy Severe mouth and Verified 08/19/24 15:55 lips tingle/itching peanut Allergy Severe ANAPHYLAXIS Verified 08/19/24 15:55 pistachio nut Allergy Severe "start of Verified 08/19/24 15:55 anaphylaxis" shellfish derived Allergy Severe ANAPHYLAXIS Verified 08/19/24 15:55 Sulfa (Sulfonamide Allergy Severe TACHYCARDIA,? Verified 08/19/24 15:55 Antibiotics) DRUG INTERACTION Venofer Allergy Unknown IV IRON Verified 05/18/17 10:55 SUCROSE-WEAKNESS,LT HEADED,CHEST HEAVINESS, HOT SENS Insect Extract Allergy Severe ANAPHYLAXIS Uncoded 08/19/24 15:55 Home Medications Medication Instructions Recorded Confirmed Type calcium carbonate (Antacid 200 mg PO BID #60 tabs 08/19/18 08/19/24 Rx (calcium carbonate)) aspirin 81 mg tablet,delayed 81 mg PO HS 02/28/19 08/19/24 History release (Adult Aspirin Regimen) cetirizine 10 mg capsule (All Day 10 mg PO HS 02/28/19 08/19/24 History Allergy (cetirizine)) furosemide 20 mg tablet 20 mg PO DAILY PRN prior to flying 02/28/19 08/19/24 History cyanocobalamin (vitamin B-12) 1,000 mcg IM MONTHLY #1 mL 11/05/19 08/19/24 Rx 1,000 mcg/mL injection solution syringe with needle 3 mL 25 gauge #1 ea 11/05/19 08/19/24 Rx x 1" (BD Luer-Richard Syringe) quinapril 20 mg tablet 10 mg PO QAM 08/12/20 08/19/24 History polyethylene glycol 3350 17 17 g PO DAILY #238 grams 01/13/21 08/19/24 Rx gram/dose oral powder (Miralax) cholecalciferol (vitamin D3) 25 1,000 unit PO BID 09/09/21 08/19/24 History mcg (1,000 unit) capsule diltiazem HCl 30 mg tablet 30 mg PO DAILY PRN palpitations 10/18/22 08/19/24 History Ventolin HFA 90 mcg/actuation 2 puff inhalation Q4H PRN 04/02/23 08/19/24 Rx aerosol inhaler (albuterol sulfate) shortness of breath or wheezing #24 grams evolocumab 140 mg/mL subcutaneous 140 mg subcut .EVERY 2 WEEKS 11/08/23 08/19/24 History pen injector (Khurram Henderson) famotidine 20 mg tablet 20 mg PO BID 3 months #180 tabs 12/14/23 08/19/24 Rx acetaminophen 500 mg tablet 500 mg PO Q6H 02/14/24 08/19/24 History (Tylenol Extra Strength) fluticasone propionate 50 1 spray intranasal QAM 03/27/24 08/19/24 History mcg/actuation nasal spray,suspension ciclesonide 160 mcg/actuation 160 mcg inhalation QAM 05/08/24 08/19/24 History aerosol inhaler (Alvesco) epinephrine 0.3 mg/0.3 mL 0.3 mg (0.3 mL) IM .COMPLEX PRN 05/28/24 08/19/24 Rx injection, auto-injector anaphylaxis #2 ea triamcinolone acetonide 0.1 % 1 applic topical BID #80 grams 07/07/24 08/19/24 Rx topical cream Past Med/Surg History Problem List (Updated 08/20/24 @ 04:57 by Bette Ng) Diverticulitis history of, previous hospitalization [facility] ? 2019 Intractable abdominal pain Acute UTI (Acute) Nausea (Acute) Colitis (Acute) Abdominal pain, lower (Acute) Anaphylaxis due to food Mild persistent asthma Oral allergy syndrome Encounter for pre-operative examination Prediabetes Myalgia due to statin Kidney cysts Kidney stones Colitis (Acute) IBS (irritable bowel syndrome) Pernicious anemia Paroxysmal atrial tachycardia follows with Dr. Chatman Irritable bowel disease Edema Vitamin D deficiency (Chronic) Hyperparathyroidism Esophageal reflux B12 deficiency anemia Osteoporosis Arthralgia of multiple sites Asthma (Chronic) HTN (hypertension) (Chronic) Heterozygous factor V Leiden mutation (Chronic) Factor V Leiden, prothrombin gene mutation (Chronic) Medical History Oral allergy syndrome Prediabetes Paroxysmal atrial tachycardia Irritable bowel syndrome (IBS) History of gout Arthralgia of multiple sites Vitamin B12 deficiency anemia Vasospasm Diverticulitis Difficult intravenous access Venom-induced anaphylaxis Allergic rhinitis Tubular adenoma of rectum H/O bone density study Mass of right breast on mammogram Nausea and vomiting after administration of anesthetic agent Osteoporosis Osteoarthritis Hiatal hernia Diverticular disease Factor 5 Leiden mutation, heterozygous Hyperlipidemia Hypertension Cardiac murmur Asthma History of nephrolithiasis Antral gastritis Anaphylaxis due to shellfish Anaphylaxis due to peanuts 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 kidney Surgical History History of esophagogastroduodenoscopy (EGD) History of right inguinal hernia repair History of colonoscopy with polypectomy History of wisdom tooth extraction History of lithotripsy Family History Father Dementia Hypertension Mother Hyperlipidemia Leukemia Stroke Asthma Grandmother (Maternal) Stroke Grandfather (Maternal) Family hx of colon cancer Grandfather (Paternal) Myocardial infarction Other No family history of adverse response to anesthesia Denies family history of Ovarian cancer Prostate cancer Breast cancer Colorectal cancer Social History Smoking Status: Never smoker Tobacco Type: Cigarettes Age Started Using Tobacco: 17; Age Quit Using Tobacco: 38; packs per day: 0.25; Cigarettes Per Day: one pack lasted a week; Second Hand Exposure: No; Do You Dip or Chew Tobacco: No; Hx Alcohol Use: No Hx Substance Use: No Preferred Language: Kyrgyz Communication Ability: Effective Visual Impairment: No Limitations Hearing Ability: Normal Handwriting Expert Required: Yes Beliefs That Will Affect Care: None marital status: Current Living Situation: Spouse current occupational status: retired Other Information That Helps Us Care for You: No Feels Safe at Home: Yes Safety Concerns: Feels Safe At This Time Childhood Exposure to Second-Hand Smoke: No (parents) Dental Care, Regularly: Yes Physical Activity Frequency: 3-4 Times per Week Seatbelt Use: always Sunscreen Use: Yes Assistive Devices: Glasses and Hospital Bed Review of Systems Review of Systems: see HPI Physical Exam Physical Exam: The patient is awake, alert and oriented 3, well developed and well nourished, normocephalic and atraumatic, in no acute distress. Non-toxic appearing. HEENT- EOMI, mucous membranes moist. Hearing grossly intact. Heart-normal S1 and S2. No murmurs, rubs or gallops. Lungs-clear bilaterally, no respiratory distress, no accessory muscle use. Abdomen-normal bowel sounds and soft. No ascites noted. Non-tender. Extremities- no clubbing, cyanosis, or edema. Rheumatologic-normal range of motion. Psychiatric-normal affect. Results & Data Results & Data Vital Signs (Past 12 Hours) Vital Signs Temp Pulse Resp BP Pulse Ox O2 Del Method 08/20/24 03:11 88 08/20/24 01:36 88 18 08/20/24 01:31 148/63 H 08/20/24 01:31 148/63 H 08/20/24 01:27 82 23 94 08/20/24 01:21 75 20 92 08/20/24 01:12 79 19 95 08/20/24 01:03 77 24 94 08/20/24 01:00 125/100 08/20/24 01:00 125/100 08/20/24 00:27 67 20 94 08/20/24 00:15 70 18 90 08/20/24 00:00 153/69 H 08/20/24 00:00 71 16 93 08/19/24 23:54 71 21 94 08/19/24 23:42 70 20 92 08/19/24 23:39 68 17 93 08/19/24 23:37 152/74 H 08/19/24 23:37 152/74 H 08/19/24 23:14 69 08/19/24 23:12 72 16 96 08/19/24 23:00 65 22 95 08/19/24 22:58 Room Air 08/19/24 22:54 66 22 96 Room Air 08/19/24 22:51 37.5 C 70 20 190/86 H 97 Room Air Laboratory Results reviewed CBC, CMP, PT/INR, troponin, lipase, UA Diagnostic Findings reviewed AP CT Medications Administered EMSZofran ED1L NSS bolus, fentanyl 150 mcg, Zofran 4 Mg IV, Zosyn 4.5 g IV ECG Additional Comments: ordered Code Status & VTE Plan Code Status full VTE Prophylaxis Plan VTE Prophylaxis will be ordered: Yes Supervising Physician Co-Signing Physician Notes I personally saw and examined the patient. I independently reviewed the labs, EKG, imaging, problem list, medication list, past medical history and family history. I verified all bermudez points and agree with Bianca Limon PA-C with the following exceptions and/or additions: 74 year old female presents to the ER with lower abdominal pain. Feels similar to prior diverticulitis/colitis episode although in slightly different position. Colonoscopy after her prior episode showed diverticulosis and tubular adenomas biopsied. O/E lower abdominal pain on palpation without guarding or rebound tenderness A/P Diverticulitis/colitis - stool c. diff PCR, NPO, IV fluids, IV Zosyn PG Care Time/CCT Total # of Minutes Spent Total Time Spent with Patient: Total time spent is greater than 50% in coordination of care (as documented) at patient's floor/unit and/or counseling patient: Coding Level of Care Code 79136 INT INP/OBS CARE MIN Diagnoses Diverticulitis K57.92 Colitis K52.9 Intractable abdominal pain R10.9 Nausea R11.0
[2024-08-20] MEDS: LACTATED RINGER'S 1,000 ML IV SCH (03:47)
[2024-08-20] MEDS: ACETAMINOPHEN 1,000 MG/100 ML VIAL IV STA (03:47)
[2024-08-20] MEDS ORDERED: ALBUTEROL HFA 8 GM INHALER INH PRN (05:04)
[2024-08-20] MEDS ORDERED: MoRPHine SULFATE 2 MG/ML CARP IV PRN (05:04)
[2024-08-20] MEDS: MoRPHine SULFATE 4 MG/ML 1 ML CARP\\VIAL IV PRN (05:59)
[2024-08-20] MEDS: PIPERACILLIN/TAZOBACTAM 4.5 GM/100 ML BAG IV SCH (08:39)
[2024-08-20] MEDS: ENOXAPARIN INJ 40 MG/0.4 ML SYR SQ SCH (08:45)
[2024-08-20] MEDS: FLUTICASONE FUROATE 100MCG 14 PUFFS/INHALER INH SCH (08:46)
[2024-08-20] MEDS: FAMOTIDINE 20 MG TAB PO SCH (08:49)
[2024-08-20] MEDS ORDERED: Nursing to Pharmacy Communication SCH (09:00)
[2024-08-20] MEDS ORDERED: ENALAPRIL MALEATE 5 MG TAB PO SCH (09:00)
[2024-08-20] MEDS: ACETAMINOPHEN 1,000 MG/100 ML VIAL IV SCH (16:54)
[2024-08-20] MEDS: FLUTICASONE PROPIONATE NA SPR 16 GM BTL SCH (17:53)
[2024-08-20] MEDS: ENALAPRIL MALEATE 5 MG TAB PO SCH (19:19)
[2024-08-20] MEDS: ASPIRIN 81 MG ECTAB PO SCH (19:20)
--- NOTE | 2024-08-21 04:38 | Electrocardiogram Report ---
Test Reason : Blood Pressure : */* mmHG Vent. Rate : 72 BPM Atrial Rate : 72 BPM P-R Int : 148 ms QRS Dur : 74 ms QT Int : 416 ms P-R-T Axes : -15 -11 -19 degrees QTcB Int : 455 ms Normal sinus rhythm Nonspecific ST and T wave abnormality Abnormal ECG When compared with ECG of 27-Mar-2024 16:26, No significant change was found Confirmed by Tony Balderas ([id number]) on 08/21/2024 4:37:53 AM Referred By: REFERRED SELF Confirmed By: Tony Balderas
[2024-08-21 06:10] LABS: C. diff 027-NAP1-BI NEGATIVE; Cdiff Toxin B Gene (2yr or >) Negative Cdiff Gene (Neg)
[2024-08-21 06:40] LABS: Adenovirus F 40/41 PCR Not Detected (NotDetected); Astrovirus PCR Not Detected (NotDetected); Campylobacter PCR Not Detected (NotDetected); Cryptosporidium PCR Not Detected (NotDetected); Cyclospora cayetanensis PCR Not Detected (NotDetected); Entamoeba histolytica PCR Not Detected (NotDetected); Enteroaggregative E.coli(EAEC) Not Detected (NotDetected); Enteropathogenic E.coli (EPEC) Not Detected (NotDetected); Enterotoxigenic E.coli (ETEC) Not Detected (NotDetected); Giardia lamblia PCR Not Detected (NotDetected); Norovirus GI/GII PCR Not Detected (NotDetected); Plesiomonas shigelloides PCR Not Detected (NotDetected); Rotavirus A PCR Not Detected (NotDetected); Salmonella PCR Not Detected (NotDetected); Sapovirus PCR Not Detected (NotDetected); Shiga-like Toxin E.coli (STEC) Not Detected (NotDetected); Shigella/Enteroinvasive E.coli Not Detected (NotDetected); Vibrio cholerae PCR Not Detected (NotDetected); Vibrio species PCR Not Detected (NotDetected); Yersinia enterocolitica PCR Not Detected (NotDetected)
[2024-08-21 06:41] LABS: Basophils # (auto) 0.05 K/uL (0.00-0.20); Basophils % (auto) 0.4 %; Eosinophils # (auto) 0.11 K/uL (0.00-0.50); Eosinophils % (auto) 0.9 %; Hematocrit (blood only) 36.5 % (37.0-47.0); Hemoglobin 11.7 g/dl (12.0-16.0); Immature Granulocytes # (auto) 0.05 K/uL (0.01-0.20); Immature Granulocytes % (auto) 0.4 %; Lymphocytes # (auto) 2.99 K/uL (1.20-3.40); Mean Corpuscular Hgb Conc 32.1 g/dL (32.0-36.0); Mean Corpuscular Volume 99.7 fL (80.0-100.0); Mean Platelet Volume 10.1 fL (9.4-12.4); Monocytes # (auto) 0.89 K/uL (0.11-0.59); Monocytes % (auto) 7.2 %; Neutrophils # (auto) 8.35 K/uL (1.40-6.50); Neutrophils % (auto) 67.1 %; Platelet Count 244 K/uL (130-400); RDW Coefficient of Variation 12.9 % (11.5-14.5); RDW Standard Deviation 47.6 fL (36.4-46.3); Red Blood Count 3.66 M/uL (4.20-5.40); White Blood Count 12.44 K/ul (4.8-10.8)
[2024-08-21 06:58] LABS: Albumin Globulin Ratio 1.5 (0.9-2); Albumin Level 3.9 gm/dl (3.4-5.0); BUN Creatinine Ratio 12.3 (10-20); Bilirubin,Total 0.7 mg/dl (0.2-1.0); Calcium 8.8 mg/dl (8.6-10.3); Creatinine Clr Calc Pharmacy 62.1 ml/min; Globulin 2.6 gm/dl (2.5-4.0); Magnesium 2.1 mg/dl (1.7-2.4); Potassium 3.8 mmol/L (3.5-5.1); Total Protein 6.5 gm/dl (6.0-8.3)
[2024-08-21] MEDS ORDERED: ACETAMINOPHEN 1,000 MG/100 ML VIAL IV SCH (11:30)
--- NOTE | 2024-08-21 12:03 | Hospitalist Progress Note ---
Date of Service August 21, 2024 Assessment & Plan (1) Diverticulitis: (2) Colitis: (3) Intractable abdominal pain: (4) Nausea: Plan Patient is a 74 female with past medical history of Diverticulitis, factor V Leiden, asthma, hypertension, hyperlipidemia. patient was seen by her PCP today for her wellness visit was feeling perfectly fine, she went home and had dinner when she went to the bathroom after she developed significant mid lower abdominal pain as well as nausea, vomiting, and weakness. She vomited approximately 3-4 times and then her called EMS. AP CT revealed colitis without diverticulitis however patient has required hospitalizations in the past for similar findings that were treated as diverticulitis. Will admit for diverticulitis/colitis and intractable pain. #Diverticulitis/colitis/intractable abdominal pain - Admitted with abd pain, leukocytosis, WBC 17.24. AP CT revealed colitis, diverticulosis without acute diverticulitis. -Patient with similar symptoms and CT findings previously treated as diverticulitis and well-tolerated. Patient with recent EGD and colonoscopy Mayolonoscopy revealed polyp, multiple small mouth diverticuli, internal hemorrhoids. -EGD revealed nonobstructing Schatzki in distal esophagus (dilated), small hiatal hernia, mild localized inflammation of gastric antrum. Abd pain is much better today -Will start her on clear liquid diet, advance as tolerated Pain control with Tylenol, morphine 2/4 Mg IV as needed for breakthrough pain Zofran as needed - Continue Zosyn - continue to monitor #hypoxia secondary to opioids Wean oxygen as tolerated Incentive spirometry #Allergiescontinue home inhalers #HTNcontinue quinapril VTE ppx: Lovenox, history of factor V Leiden Dispo: hopefully d/c in the next 24 hrs Admission and Anticipated Discharge Date Admission Date: August 20, 2024 Subjective patient seen and examined, says her abd pain is better Review of Systems Review of Systems: All systems reviewed are negative, apart from the ones contained in the history. Physical Exam Physical Exam: The patient is awake, alert and oriented 3, well developed and well nourished, normocephalic and atraumatic, lying in bed and in no acute distress. HEENT--PERRL, EOMI, mucous membranes and oropharynx mildly dry Neck--supple. No JVD. No bruits. Thyroid normal, trachea midline, no adenopathy. Heart--normal S1 and S2. No murmurs, rubs or gallops. Lungs--clear bilaterally, no respiratory distress, no accessory muscle use. Abdomen--normal bowel sounds and soft. Extremities--no cyanosis or clubbing. No edema. Dermatologic--normal skin turgor, normal color, no abnormal lymph nodes, no rash. Neurologic--cranial nerves II through XII grossly intact. Rheumatologic--normal range of motion. Psychiatric--normal affect. Results & Data Results & Data Vital Signs (Past 12 Hours) Vital Signs Temp Pulse Resp BP Pulse Ox O2 Del Method 08/21/24 09:41 98.4 F 67 18 122/74 96 Room Air 08/21/24 07:00 97.7 F 73 18 117/74 95 Room Air PG Care Time/CCT Total # of Minutes Spent Total Time Spent with Patient: Total time spent is greater than 50% in coordination of care (as documented) at patient's floor/unit and/or counseling patient: Coding Level of Care Code 41766 SUB INP/OBS CARE 2/35MIN Diagnoses Diverticulitis K57.92 Colitis K52.9 Intractable abdominal pain R10.9 Nausea R11.0 Time Spent (min) 35
[2024-08-21] MEDS: ONDANSETRON INJ 2 MG/ML 2 ML VIAL IV PRN (13:22)
[2024-08-22 08:33] LABS: Hematocrit (blood only) 34.4 % (37.0-47.0); Hemoglobin 11.2 g/dl (12.0-16.0); Mean Corpuscular Hgb Conc 32.6 g/dL (32.0-36.0); Mean Corpuscular Volume 98.3 fL (80.0-100.0); Platelet Count 242 K/uL (130-400); RDW Coefficient of Variation 12.9 % (11.5-14.5); RDW Standard Deviation 46.6 fL (36.4-46.3); White Blood Count 13.38 K/ul (4.8-10.8)
--- NOTE | 2024-08-22 11:52 | Hospitalist Progress Note ---
Date of Service August 22, 2024 Assessment & Plan (1) Diverticulitis: (2) Colitis: (3) Intractable abdominal pain: (4) Nausea: Plan Patient is a 74 female with past medical history of Diverticulitis, factor V Leiden, asthma, hypertension, hyperlipidemia. patient was seen by her PCP today for her wellness visit was feeling perfectly fine, she went home and had dinner when she went to the bathroom after she developed significant mid lower abdominal pain as well as nausea, vomiting, and weakness. She vomited approximately 3-4 times and then her called EMS. AP CT revealed colitis without diverticulitis however patient has required hospitalizations in the past for similar findings that were treated as diverticulitis. Will admit for diverticulitis/colitis and intractable pain. #Colitis - Admitted with abd pain, leukocytosis, WBC 17.24. AP CT revealed colitis, diverticulosis without acute diverticulitis. -Patient with similar symptoms and CT findings previously treated as diverticulitis and well-tolerated. Patient with recent EGD and colonoscopy Mayolonoscopy revealed polyp, multiple small mouth diverticuli, internal hemorrhoids. -EGD revealed nonobstructing Schatzki in distal esophagus (dilated), small hiatal hernia, mild localized inflammation of gastric antrum. Abd pain is much better today, although WBC trended up a notch -Tolerated clear liquid diet, will advance to general Pain control with Tylenol, morphine 2/4 Mg IV as needed for breakthrough pain Zofran as needed - Continue Zosyn - continue to monitor #hypoxia secondary to opioids Wean oxygen as tolerated Incentive spirometry #Allergiescontinue home inhalers #HTNcontinue quinapril VTE ppx: Lovenox, history of factor V Leiden Dispo: hopefully d/c in the next 24 hrs Admission and Anticipated Discharge Date Admission Date: August 20, 2024 Subjective patient seen and examined, says her abd pain is better Review of Systems Review of Systems: All systems reviewed are negative, apart from the ones contained in the history. Physical Exam Physical Exam: The patient is awake, alert and oriented 3, well developed and well nourished, normocephalic and atraumatic, lying in bed and in no acute distress. HEENT--PERRL, EOMI, mucous membranes and oropharynx mildly dry Neck--supple. No JVD. No bruits. Thyroid normal, trachea midline, no adenopathy. Heart--normal S1 and S2. No murmurs, rubs or gallops. Lungs--clear bilaterally, no respiratory distress, no accessory muscle use. Abdomen--normal bowel sounds and soft. Extremities--no cyanosis or clubbing. No edema. Dermatologic--normal skin turgor, normal color, no abnormal lymph nodes, no rash. Neurologic--cranial nerves II through XII grossly intact. Rheumatologic--normal range of motion. Psychiatric--normal affect. Results & Data Results & Data Vital Signs (Past 12 Hours) Vital Signs Temp Pulse Resp BP Pulse Ox O2 Del Method 08/22/24 08:10 98.1 F 71 18 135/77 94 Room Air PG Care Time/CCT Total # of Minutes Spent Total Time Spent with Patient: Total time spent is greater than 50% in coordination of care (as documented) at patient's floor/unit and/or counseling patient: Coding Level of Care Code 44098 SUB INP/OBS CARE 2/35MIN Diagnoses Diverticulitis K57.92 Colitis K52.9 Intractable abdominal pain R10.9 Nausea R11.0 Time Spent (min) 35
[2024-08-22] MEDS: CHOLECALCIFEROL 25 MCG (1000 UNITS) TAB PO SCH (20:06)
[2024-08-23 07:21] LABS: Hematocrit (blood only) 34.4 % (37.0-47.0); Hemoglobin 11.4 g/dl (12.0-16.0); Mean Corpuscular Hemoglobin 32.4 pg (25.0-34.0); Mean Corpuscular Hgb Conc 33.1 g/dL (32.0-36.0); Mean Corpuscular Volume 97.7 fL (80.0-100.0); Mean Platelet Volume 10.2 fL (9.4-12.4); Platelet Count 268 K/uL (130-400); RDW Coefficient of Variation 12.6 % (11.5-14.5); RDW Standard Deviation 45.5 fL (36.4-46.3); Red Blood Count 3.52 M/uL (4.20-5.40); White Blood Count 10.09 K/ul (4.8-10.8)
[2024-08-23 07:47] LABS: BUN Creatinine Ratio 12.9 (10-20); Calcium 8.8 mg/dl (8.6-10.3); Creatinine Clr Calc Pharmacy 64.8 ml/min; Potassium 3.2 mmol/L (3.5-5.1)
[2024-08-23 08:00] VITALS: BP 168/86; PULSE 77; RESP 17; TEMP 98.1; O2SAT 95
[2024-08-23] MEDS: POTASSIUM CHLORIDE CRTAB 20 MEQ TABCR PO STA (09:02)
--- NOTE | 2024-08-23 11:53 | Discharge Summary ---
Date of Service August 23, 2024 Admission HPI Per Admitting Provider Patient is a 74 female with past medical history of Diverticulitis, factor V Leiden, asthma, hypertension, hyperlipidemia. patient was seen by her PCP today for her wellness visit was feeling perfectly fine, she went home and had dinner when she went to the bathroom after she developed significant mid lower abdominal pain as well as nausea, vomiting, and weakness. She vomited approximately 3-4 times and then her called EMS. AP CT revealed colitis without diverticulitis however patient has required hospitalizations in the past for similar findings that were treated as diverticulitis. Will admit for d iverticulitis/colitis and intractable pain. Patient seen at bedside. She is very pleasant. She stated she was feeling perfectly fine until after dinner when she developed significant abdominal pain that comes and goes. Pain is currently 7/10 after receiving 150 mcg of fentanyl in the ED. Her nausea is well-controlled. Patient stated she felt so weak during these episodes and that she was going to pass out so her called EMS. She stated when she has had kidney stones in the past that felt much different than this and when she had diverticulitis in 2019 requiring admission, is more so on the left side rather than in the middle. She denies any current dizziness/lightheadedness, chest pain, shortness of breath, dysuria, hematuria, hematemesis, diarrhea, constipation. She has not had a bowel movement yet patient states she was a former smoker, quitting in the . She does not drink alcohol. She does not use oxygen at baseline, currently on 5lNC after receiving fentanyl in ED. She did take her home medications today. She wishes to be full code. Admission Exam (Per Admitting) Constitutional The patient is awake, alert and oriented 3, well developed and well nourished, normocephalic and atraumatic, lying in bed and in no acute distress. HEENT--PERRL, EOMI, mucous membranes and oropharynx mildly dry Neck--supple. No JVD. No bruits. Thyroid normal, trachea midline, no adenopathy. Heart--normal S1 and S2. No murmurs, rubs or gallops. Lungs--clear bilaterally, no respiratory distress, no accessory muscle use. Abdomen--normal bowel sounds and soft. Extremities--no cyanosis or clubbing. No edema. Dermatologic--normal skin turgor, normal color, no abnormal lymph nodes, no rash. Neurologic--cranial nerves II through XII grossly intact. Rheumatologic--normal range of motion. Psychiatric--normal affect. Discharge Data Consultations 08/20/24 02:17 ED Decision to Admit Stat Hospital Course (1) Diverticulitis: (2) Colitis: (3) Intractable abdominal pain: (4) Nausea: Plan Patient is a 74 female with past medical history of Diverticulitis, factor V Leiden, asthma, hypertension, hyperlipidemia. patient was seen by her PCP today for her wellness visit was feeling perfectly fine, she went home and had dinner when she went to the bathroom after she developed significant mid lower abdominal pain as well as nausea, vomiting, and weakness. She vomited approximately 3-4 times and then her called EMS. AP CT revealed colitis without diverticulitis however patient has required hospitalizations in the past for similar findings that were treated as diverticulitis. Will admit for diverticulitis/colitis and intractable pain. #Colitis - Admitted with abd pain, leukocytosis, WBC 17.24. AP CT revealed colitis, diverticulosis without acute diverticulitis. -Patient with similar symptoms and CT findings previously treated as diverticulitis and well-tolerated. Patient with recent EGD and colonoscopy Mayolonoscopy revealed polyp, multiple small mouth diverticuli, internal hemorrhoids. -EGD revealed nonobstructing Schatzki in distal esophagus (dilated), small hiatal hernia, mild localized inflammation of gastric antrum. Abd pain is much better today, although WBC trended up a notch -Tolerated clear liquid diet, will advance to general Pain control with Tylenol, morphine 2/4 Mg IV as needed for breakthrough pain Zofran as needed - discharge on PO cipro an flagyl for 5 days #hypoxia secondary to opioids Wean oxygen as tolerated Incentive spirometry #Allergiescontinue home inhalers #HTNcontinue quinapril VTE ppx: Lovenox, history of factor V Leiden Dispo: hopefully d/c in the next 24 hrs Coding Level of Care Code 17910 INP/OBS DISCH >30 MIN Diagnoses Diverticulitis K57.92 Colitis K52.9 Intractable abdominal pain R10.9 Nausea R11.0 Time Spent (min) 35
== END 2024-08-23 14:49 | disposition home or self-care (01) | DRG 392 ==
LOC: SUATTDRO → 3N 22:46 → ED 22:46 → 3N 08-20 04:40 → SUATTDRO 08-20 08:55